=== PATIENT | female | born 1965 | race Caucasian/White ===

== ENCOUNTER 2016-08-24 19:31 | Emergency (ER) | payer OTHER ==
[~2016-08-24] VITALS: Ht 157.5 cm; Wt 89.8 kg
[~2016-08-24 19:31] MED LIST: ATEN50TA8 PO
[2016-08-24 19:46] VITALS: TEMP 36.9; Ht 157.5 cm; Wt 89.8 kg
[2016-08-24] MEDS ORDERED: PARO1TAB27 PO (20:00)
[2016-08-24] MEDS ORDERED: PROPARACAINE HCL 0.5% OP SOLN 15 ML BTL OP STA (20:06)
[2016-08-24] MEDS ORDERED: ERYTHROMYCIN OP OINT 5 MG/GM 3.5 GM TUBE OP ONE (20:45)
[2016-08-24] MEDS ORDERED: ERYOPO1 OPR (20:48)
--- NOTE | 2016-08-24 20:49 | EMERGENCY ROOM VISIT NOTE ---
History First contact with patient: 19:50 Chief Complaint: EYE ASSESSMENT Stated Complaint: WORK COMP,BURNING,BLURRY VISION R EYE,BLEACH History of Present Illness The patient is a 50 year old female who presents to the Emergency Department by private vehicle for evaluation of persistent burning to the RIGHT eye. She reports that approximately 4 PM while at work, she was filling a bucket with water and cleaning solution when she was last in the eye with the cleaning solution. 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 She is uncertain of the ingredients. She continued to work but had persistent pain despite taking out her contact lens immediately. She flushed the eyes immediately. She was seen at a walk-in clinic. She had an eye exam performed and was directed to the emergency department for concern for possible corneal burn. The patient complains of persistent burning and pain to the Frances her discomfort a 6/10. She denies any fevers, chills, double vision, headaches, this is correlated numbness, nausea, or vomiting. Her tetanus status is up-to-date. Review of Systems A complete 10-point Review of Systems was discussed with the patient, with pertinent positives and negatives listed in the History of Present Illness. All remaining Review of Systems questions can be considered negative unless otherwise specified. Social History Smoking Status: Never Smoker Smokeless Tobacco Use: No Drug Use: none Marital Status: Housing Status: lives with family Occupation Status: employed Current/Historical Medications Scheduled Atenolol (Tenormin), 50 MG PO DAILY Erythromycin (Erythromycin), 1 CM OPR QID Paroxetine (Paxil), 20 MG PO DAILY Allergies Coded Allergies: Sulfa Drugs (Unverified Allergy, Severe, 08/06/09) Physical Exam Vital Signs Date Time Temp Pulse Resp B/P Pulse Ox O2 Delivery O2 Flow Rate FiO2 08/24/16 21:35 66 133/79 97 08/24/16 19:46 36.9 75 18 139/83 96 Room Air Right Eye Acuity: 20/200 Left Eye Acuity: 20/40 Pain Rating (0-10): 6 Physical Exam VITAL SIGNS - Vital signs and nursing notes were reviewed. GENERAL - 50-year-old female appearing her stated age. Communicates well with provider and answers questions appropriately. HEAD - Normocephalic, Atraumatic. No Adames's Sign or Raccoon's Eyes. No depressed skull fractures palpable. EYES - PERRL with EOMI bilaterally. Sclera without noticeable foreign body or excoriations. Mild injection noted in the RIGHT eye. Without subconjunctival hemorrhage. Palpebral conjunctiva pink and moist with no injection or discharge noted. Slit lamp examination performed as further described. EARS - No deformities of external structures noted on gross examination bilaterally. Handle of malleus, umbo, cone of light, pars tensa/flaccid all easily visualized. NOSE - Midline and without cyanosis. Without discharge. MOUTH/OROPHARYNX - Without perioral cyanosis. Tongue midline with equal elevation of palate bilaterally. No tonsillar hypertrophy, erythema, or exudates noted. Good dentition noted. NECK - FROM assessed. No cervical lymphadenopathy noted. Medical Decision & Procedures Medications Administered Medications (Trade) Dose Ordered Sig/Valerie Route Start Time Stop Time Status Last Admin Dose Admin Proparacaine HCl (Alcaine 0.5% Oph Soln) 2 drops NOW STAT OP 08/24/16 20:06 08/24/16 20:07 DC 08/24/16 20:18 2 DROPS Erythromycin (Erythromycin Oph Oint) 1 appln NOW ONCE OP 08/24/16 20:45 08/24/16 20:46 DC 08/24/16 21:32 1 APPLN Procedure Slit Lamp Examination was performed of the RIGHT eye(s). Alcaine drops were applied to the affected eye(s) for proper anesthetization. The affected eye(s) were stained with Fluorescein stain to precipitate adequate visualization of any conjunctival/scleral excoriations or ulcers. The patient's face was comfortably rested on the chin guard of the slit lamp apparatus. The lights were dimmed and the affected eye(s) were thoroughly examined under microscopy using the blue light. No uptake was present throughout. Additionally, the eye(s ) were examined under microscopy using the regular light. Close examination revealed no foreign material. No hyphema or hypopyon. Patient tolerated the procedure well and no complications were met. ED Course Patient was seen and evaluated by myself. Slit-lamp exam was performed. PH was found to be 7.0 bilaterally. It did discuss the case with poison control. They agree with assessment and conservative management as the patient is oriented and evaluated and flushed the eyes for comfort. The patient's exam is otherwise unremarkable. She was provided erythromycin ophthalmic, but for antibiotic coverage and soothing comfort. The patient will follow-up with Workmen's Compensation approved supervisor unloading from today's visit. She will return for any changing or worsening symptoms. Patient discharged home in good condition. Medical Decision Given the patient's presentation and stated complaints, I did elect to perform the above-mentioned workup. The patient presents with persistent pain and burning to the RIGHT eye. She chemical exposure to the area. Her exam is otherwise unremarkable. The patient is likely expansive persistent irritation secondary to the exposure. She'll follow-up with her workman's compensation approved supervisor unloading from today's visit. She will return for any changing or worsening symptoms. Patient discharged home in good condition. In the evaluation and treatment of this patient, the following differential diagnoses were considered: Corneal Abrasion, Conjunctivitis, Eye Contusion, Globe Injury, Orbital Floor Injury (Blowout Fracture), Corneal Ulcer, Keratitis , Herpes Zoster Ophthalmic, Blepharitis, Orbital Cellulitis, Iritis, Scleritis/ Episcleritis, Uveitis, Temporal Arteritis, Subconjunctival Hemorrhage. Impression Primary Impression: Chemical exposure of eye Departure Information Dispostion Home / Self-Care Condition GOOD Prescriptions Erythromycin (Erythromycin) 1 Appln/1 Gm Oint 1 CM OPR QID for 7 Days, #1 TUBE 0 Refills Prov: Layo Mack, SAL 08/24/16 Referrals Cash Rogers M.D. (PCP) Maverick Ernst M.D. Patient Instructions My [facility] Additional Instructions You have been treated in the Emergency Department for chemical exposure/ irritation to the RIGHT eye. Use the erythromycin ophthalmic ointment as prescribed. For pain control, you can use the following [id number] medicines (if >12 yo): - Regular strength (325mg/tab) Tylenol (acetaminophen) 2 tabs every 4-6 hours as needed. Do not exceed 12 tablets in a 24 hour period. Avoid taking more than 4 grams (4000 mg) of Tylenol per day. This includes any other sources of acetaminophen you may take on a regular basis. - Regular strength (200 mg/tab) Advil (ibuprofen) 1-2 tabs every 4-6 hours as needed. Do not exceed a dose of 3200 mg per day. Avoid rubbing your eyes for the next few days as this can cause irritation. Wear sunglasses when outside to help minimize your pain. You should relax in a quiet, dark room to help minimize your symptoms. You should seek evaluation of your corneal irritation by an supervisor unloading following your visit to the Emergency Department. The Emergency Department is not capable of treating optic issues long-term. You should call your supervisor unloading as soon as possible to make an appointment for evaluation of your follow-up care. Return to the emergency department if you develop the following symptoms despite treatment course outlined above: blurry vision, loss of vision, fever, intractable pain, increased redness, swelling, or purulent discharge.
[2016-08-24 21:35] VITALS: BP 133/79; PULSE 66; O2SAT 97
== END 2016-08-24 21:36 | disposition home or self-care (01) ==
LOC: C.EDB 19:32 → C.EDD 21:36
DX: T65.91XA Toxic effect of unspecified substance, accidental (unintentional), initial encounter (principal); H57.11 Ocular pain, right eye; H53.8 Other visual disturbances; X58.XXXA Exposure to other specified factors, initial encounter; Y99.0 Civilian activity done for income or pay

== ENCOUNTER 2024-08-06 14:41 | Inpatient (IN) ==
--- NOTE | 2024-08-06 15:17 | ED Triage Note ---
Date of Service August 06, 2024 Provider in Triage Author: Angel Paulson History of Present Illness This patient was briefly evaluated while in triage. An abbreviated physical exam was performed. 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 Nontender to palpation. Initial orders for labs and / or imaging were placed and patient was placed in the waiting area until a bed is available. Please see further documentation for the full ED course.
[2024-08-06 16:34] LABS: Basophils # (auto) 0.04 K/uL (0.00-0.20); Basophils % (auto) 0.4 %; Eosinophils # (auto) 0.14 K/uL (0.00-0.50); Eosinophils % (auto) 1.4 %; Hematocrit (blood only) 41.5 % (37.0-47.0); Hemoglobin 14.2 g/dl (12.0-16.0); Immature Granulocytes # (auto) 0.03 K/uL (0.01-0.20); Immature Granulocytes % (auto) 0.3 %; Lymphocytes # (auto) 1.38 K/uL (1.20-3.40); Lymphocytes % (auto) 13.6 %; Mean Corpuscular Hemoglobin 31.7 pg (25.0-34.0); Mean Corpuscular Hgb Conc 34.2 g/dL (32.0-36.0); Mean Corpuscular Volume 92.6 fL (80.0-100.0); Mean Platelet Volume 10.4 fL (9.4-12.4); Monocytes # (auto) 0.47 K/uL (0.11-0.59); Monocytes % (auto) 4.6 %; Neutrophils # (auto) 8.11 K/uL (1.40-6.50); Neutrophils % (auto) 79.7 %; Platelet Count 416 K/uL (130-400); RDW Coefficient of Variation 13.3 % (11.5-14.5); RDW Standard Deviation 45.8 fL (36.4-46.3); Red Blood Count 4.48 M/uL (4.20-5.40); White Blood Count 10.17 K/ul (4.8-10.8)
[2024-08-06 16:53] LABS: Albumin Globulin Ratio 1.5 (0.9-2); Albumin Level 4.9 gm/dl (3.4-5.0); BUN Creatinine Ratio 22.8 (10-20); Bilirubin,Total 0.9 mg/dl (0.2-1.0); Calcium 12.7 mg/dl (8.6-10.3); Creatinine Clr Calc Pharmacy 56.6 ml/min; Globulin 3.3 gm/dl (2.5-4.0); Potassium 4.2 mmol/L (3.5-5.1); Total Protein 8.2 gm/dl (6.0-8.3)
[2024-08-06] MEDS: SODIUM CHLORIDE 0.9% 1,000 ML IV ONE (17:01)
[2024-08-06] MEDS: KETOROLAC TROMETHAMINE 15 MG/ML VIAL IV STA (17:03)
[2024-08-06] MEDS: MoRPHine SULFATE 4 MG/ML 1 ML CARP\\VIAL IV STA (17:05)
[2024-08-06] MEDS: ACETAMINOPHEN 500 MG TAB PO STA (17:05)
[2024-08-06 17:12] LABS: Partial Thromboplastin Ratio 0.9; Partial Thromboplastin Time 25 Seconds (21-31); Prothrombin Time 10.8 Seconds (9.0-12.0)
[2024-08-06] MEDS: OPTIRAY 320 125ml IV ONE (17:15)
--- NOTE | 2024-08-06 17:40 | Emergency Department Note ---
Impression & Plan Thoracic spine tumor, Hypercalcemia, Lumbar spine tumor, Multiple myeloma ED Provider Note NAME: NAILA QUIJANO AGE: 58 SEX: F : 1965 ARRIVES VIA: Walk-In INFORMANT: Patient, family members ED PROVIDER(S): Maurice Jay MD CHIEF COMPLAINT: Back pain MEDICAL DECISION MAKING: Patient presents due to concern for back pain. IV was established and blood work was obtained. The patient did have CT lumbar and thoracic spine ordered. Initial triage orders were placed prior to evaluation to include CT angiography of the chest. The patient was ordered IV morphine and IV Toradol as well as IV fluids.Blood work today shows a normal white count H&H with thrombocytosis of 416 which is new compared to prior although see not significantly elevated. Kidney function is unremarkable prerenal azotemia noted patient's calcium is 12.7 which is new compared to prior. AST ALT and alk phos are elevated from before. At 58 97 112 respectively. The patient's CTs do show concern for soft tissue mass centered within the T8 vertebral body with extension spinal canal near-total obstruction of the vertebral body. Lumbar spine CT shows L4 and L5 soft tissue masses progression and L5 soft tissue mass extends into the spinal canal with near-total destruction of the vertebral body of the posterior wall. CT angiography of the chest is negative. Patient was given additional IV pain medication. I did speak with [facility] Gautam orthopedic spine Dr. Mosley. He did recommend that the patient would benefit from an MRI but does not sound like she requires emergent surgery. He did suggest medical admission further discussion and management. He did state that for 48 hours could consider q. 20 mg every 8 hours of dexamethasone x 3 and then 10 mg Q 8 hours x 3. This will be given IV piggyback. I did speak with Dr. Javier Bush system triage officer who kindly accepted the patient pending a bed. I subsequently did speak with Dr. King and Dr. Faith. They felt the patient could stay in the ED given pending transfer status. I did convey it would be 24 hours per [facility] before a bed would be available. Discussion w/ other healthcare providers: Dr. Mosley orthopedic spine [facility] system [facility] Dr[facility] King inpatient medicine service Prior /Outside records reviewed: None Differential diagnosis: Musculoskeletal, disc herniation, fracture, sprain, strain, cord compression, discitis, sciatica, cauda equina, infection, renal colic, as well as other pathologies were considered. Diagnostics, as interpreted by me: ECG: None Cardiac monitoring: An order was placed for continuous cardiac monitoring. The monitor shows a rate of 95 with sinus rhythm. Patient was placed on pulse oximetry Medical decision rules: None Imaging studies: I informally interpreted the patient's CT thoracic spine does show deterioration of T8 with formal report to follow. HPI: Patient presents due to concern for worsening back pain. The patient feels as though her pain is in her T8 area. The patient states that she knows this because she does have a prior history of a lesion there and a known history of multiple myeloma. The patient is following with Dr. Vasques with hematology oncology but is yet to initiate any specific treatment other than pain management. Patient denies any bowel or bladder incontinence or retention. The patient does report that she slipped falling to her buttocks and may have missed stepped yesterday but had no pain until this morning. Patient denies any head or neck pain. No numbness tingling or focal weakness. Patient does not take any blood thinners. The patient did take oxycodone and 2 ibuprofen today which did improve her symptoms. Patient was to have a PET scan completed today but then presented here for evaluation and treatment given her pain. Patient denies any bowel or bladder incontinence or retention no saddle anesthesia. Patient denies any weakness in the extremities. PAST MEDICAL HISTORY: See Below PAST SURGICAL HISTORY: See Below SOCIAL HISTORY: See Below HOME MEDICATIONS: See Below ALLERGIES: See Below VITALS: See Below PHYSICAL EXAMINATION: GENERAL: NAD, non-toxic. EYE EXAM: Normal conjunctiva. PERRL, no anisocoria and EOM's grossly intact w/o pain. OROPHARYNX: Moist mucus membranes, grossly normal dentition. NECK: Trachea midline, no stridor. Supple, no nuchal rigidity, no adenopathy, non-tender. No signs of meningismus. FROM of the neck with good chin to chest and neck extension. LUNGS: Clear to auscultation. Normal chest wall mechanics. HEART: NSR, no MRG. ABDOMEN: Abdomen soft, non-tender, no masses, no rebound or guarding. BACK: No CVA TTP. Midline lower thoracic TTP no significant lumbar pain. SKIN: No rashes and no bruising. UPPER EXTREMITIES: Upper extremities are grossly normal. LOWER EXTREMITIES: Grossly normal, no edema. NEURO EXAM: A&O x3, cranial nerves II-XII grossly intact, normal speech, moves all 4 extremities. No saddle anesthesia and does move all 4 extremities. No sensory deficits. Past Med/Surg History Problem List (Updated 08/06/24 @ 22:41 by Maurice Jay MD) Multiple myeloma (Acute) Lumbar spine tumor (Acute) Hypercalcemia (Acute) Thoracic spine tumor (Acute) Abnormal CT scan, lumbar spine Hypovitaminosis D Hypertension (Chronic) URI (upper respiratory infection) (Acute) Strain of neck muscle Leg pain, left Hamstring tendinitis of left thigh Medical History Impaired fasting glucose Family history of factor V Leiden mutation Anxiety Chronic pain syndrome Depression Fatigue Surgical History History of cholecystectomy (~1989) Family History Father Liver cancer Brother Tobacco abuse Mother Spinal stenosis Uncle Colorectal cancer Denies family history of Ovarian cancer Prostate cancer Breast cancer Social History Smoking Status: Never smoker Second Hand Exposure: No; Do You Dip or Chew Tobacco: No; Hx Alcohol Use: Yes (occasional) Hx Substance Use: No Preferred Language: Faroese Pillow Agent Required: No marital status: current occupational status: employed Feels Safe at Home: Yes caffeine: Yes (1 cup of coffee in am) Dental Care, Regularly: No Seatbelt Use: always Allergies Allergies Allergy/AdvReac Type Severity Reaction Status Date / Time Sulfa (Sulfonamide Allergy Severe Hives Verified 08/06/24 17:40 Antibiotics) tuberculin, purified protein Allergy Severe Itching Verified 08/06/24 17:43 deriva Home Meds Home Medications Medication Instructions Recorded Confirmed acetaminophen 500 mg tablet 1,000 mg PO Q6H PRN Pain 01/05/22 08/06/24 (Tylenol Extra Strength) melatonin 5 mg capsule 5 mg PO HS PRN Sleep 05/19/22 08/06/24 ibuprofen 200 mg tablet (Advil) 400 - 600 mg PO Q6H PRN Pain 05/28/24 08/06/24 sertraline 50 mg tablet 50 mg PO HS 08/06/24 08/06/24 Previous Rx's Medication Instructions Recorded amlodipine 5 mg tablet 5 mg PO QPM #90 tabs 07/01/24 cyclobenzaprine 10 mg tablet 10 mg PO Q12H PRN muscle spasm 30 07/29/24 days #60 tabs oxycodone 5 mg tablet See Rx Instructions PO Q6H PRN 07/29/24 pain 3 days #24 tabs Results & Data (ED) Vital Signs Vital Signs - 24 hr 08/06/24 15:15 08/06/24 16:44 08/06/24 16:49 Temperature 36.6 C Temperature Source Temporal Artery Scan Pulse Rate 128 H 104 H Pulse Rate [Apical] 104 H Pulse Rhythm [Apical] Regular Pulse Strength [Apical] Normal Respiratory Rate 22 18 Respiratory Effort / Characteristics Non-Labored Spontaneous Non-Labored Spontaneous Respiratory Depth Normal Normal Respiratory Pattern Regular Blood Pressure 182/108 H Blood Pressure [Right Arm] 194/111 H Blood Pressure Mean 132 Blood Pressure Mean [Right Arm] 138 Blood Pressure Position Sitting Blood Pressure Position [Right Arm] Lying Pulse Oximetry 92 99 Oxygen Delivery Method Room Air Room Air Oxygen Flow Rate Sepsis Recent Fever Within 48 Hours No Sepsis New/Unexplained Change in Mental Status No Sepsis Action Taken by Nursing Physician Notified 08/06/24 18:04 08/06/24 20:25 08/06/24 20:33 Temperature Temperature Source Pulse Rate 96 H Pulse Rate [Apical] 99 H 95 H Pulse Rhythm [Apical] Pulse Strength [Apical] Respiratory Rate 22 16 Respiratory Effort / Characteristics Non-Labored Spontaneous Non-Labored Spontaneous Respiratory Depth Normal Normal Respiratory Pattern Regular Regular Blood Pressure Blood Pressure [Right Arm] 174/109 H 207/116 H Blood Pressure Mean Blood Pressure Mean [Right Arm] 130 146 Blood Pressure Position Blood Pressure Position [Right Arm] Lying Pulse Oximetry 94 98 Oxygen Delivery Method Room Air Nasal Cannula Oxygen Flow Rate 2 Sepsis Recent Fever Within 48 Hours Sepsis New/Unexplained Change in Mental Status Sepsis Action Taken by [facility] Medications Current Medication List: was personally reviewed by me Laboratory Data Attestation: I reviewed the patient's lab results. 08/06/24 16:00 08/06/24 16:00 Lab Results 08/06/24 08/06/24 Range/Units 16:00 21:46 WBC 10.17 (4.8-10.8) K/ul RBC 4.48 (4.20-5.40) M/uL Hgb 14.2 (12.0-16.0) g/dl Hct 41.5 (37.0-47.0) % MCV 92.6 (80.0-100.0) fL MCH 31.7 (25.0-34.0) pg MCHC 34.2 (32.0-36.0) g/dL RDW Std Deviation 45.8 (36.4-46.3) fL RDW Coeff of [place] 13.3 (11.5-14.5) % Plt Count 416 H (130-400) K/uL MPV 10.4 (9.4-12.4) fL Immature Gran % (Auto) 0.3 % Neut % (Auto) 79.7 % Lymph % (Auto) 13.6 % Harvey % (Auto) 4.6 % Eos % (Auto) 1.4 % Baso % (Auto) 0.4 % Neut # (Auto) 8.11 H (1.40-6.50) K/uL Lymph # (Auto) 1.38 (1.20-3.40) K/uL Harvey # (Auto) 0.47 (0.11-0.59) K/uL Eos # (Auto) 0.14 (0.00-0.50) K/uL Baso # (Auto) 0.04 (0.00-0.20) K/uL Immature Gran # (Auto) 0.03 (0.01-0.20) K/uL PT 10.8 (9.0-12.0) Seconds INR 1.0 (0.9-1.1) APTT 25 (21-31) Seconds PTT Ratio 0.9 Sodium 136 (136-145) mmol/L Potassium 4.2 (3.5-5.1) mmol/L Chloride 97 L (98-107) mmol/L Carbon Dioxide 28 (21-32) mmol/L Anion Gap 11 (3-11) BUN 26 H (6-23) mg/dl Creatinine 1.14 (0.6-1.2) mg/dl Est Cr Clr Drug Dosing 56.6 ml/min eGFR 55.11 BUN/Creatinine Ratio 22.8 H (10-20) Glucose 165 H (70-99(Fasting)) mg/dl Calcium 12.7 H* (8.6-10.3) mg/dl Ionized Calcium 1.36 H (1.12-1.32) mmol/L Magnesium 2.0 (1.7-2.4) mg/dl Total Bilirubin 0.9 (0.2-1.0) mg/dl AST 58 H (13-39) U/L ALT 97 H (7-52) U/L Alkaline Phosphatase 112 H (34-104) U/L Total Protein 8.2 (6.0-8.3) gm/dl Albumin 4.9 (3.4-5.0) gm/dl Globulin 3.3 (2.5-4.0) gm/dl Albumin/Globulin Ratio 1.5 (0.9-2) Administered Medications Amlodipine Besylate (Amlodipine Besylate 5 Mg Tab) 5 mg PO QPM NICOLASA Stop: 09/05/24 20:59 Last Admin: 08/06/24 21:57 Dose: 5 mg Documented By: ELIU Sodium Chloride (Nss) 1,000 mls @ 125 mls/hr IV .Q8H NICOLASA Stop: 08/07/24 21:14 Last Admin: 08/06/24 22:02 Dose: 125 mls/hr Documented By: ELIU Morphine Sulfate (Morphine Sulfate 4 Mg/Ml 1 Ml Carp\Vial) 4 mg IV Q2H PRN PRN Reason: Pain Stop: 08/20/24 19:40 Last Admin: 08/06/24 20:12 Dose: 4 mg Documented By: ELIU Sertraline HCl (Sertraline Hcl 50 Mg Tablet) 50 mg PO HS NICOLASA Stop: 09/05/24 20:59 Last Admin: 08/06/24 21:57 Dose: 50 mg Documented By: ELIU Discontinued Medications Acetaminophen (Acetaminophen 500 Mg Tab) 1,000 mg PO NOW STA Stop: 08/06/24 16:56 Last Admin: 08/06/24 17:05 Dose: 1,000 mg Documented By: ELIU Al Hydrox/Mg Hydrox/Simethicone (Aluminum/Magnesium Susp 30 Ml Udc) 30 ml PO NOW STA Stop: 08/06/24 19:52 Last Admin: 08/06/24 20:11 Dose: 30 ml Documented By: ELIU Cyclobenzaprine HCl (Cyclobenzaprine Hcl 10 Mg Tab) 10 mg PO NOW STA Stop: 08/06/24 20:57 Last Admin: 08/06/24 21:07 Dose: 10 mg Documented By: ELIU Fentanyl Citrate (Fentanyl Citrate Pf 100 Mcg/2 Ml Vial) 75 mcg IV NOW STA Stop: 08/06/24 18:09 Last Admin: 08/06/24 18:11 Dose: 75 mcg Documented By: ELIU Sodium Chloride (Nss) 1,000 mls @ 999 mls/hr IV .Q1H1M ONE Stop: 08/06/24 17:55 Last Admin: 08/06/24 17:01 Dose: 999 mls/hr Documented By: ELIU Sodium Chloride (Nss) 500 mls @ 999 mls/hr IV .Q31M ONE Stop: 08/06/24 20:11 Last Admin: 08/06/24 19:45 Dose: 999 mls/hr Documented By: ELIU Zoledronic Acid 3.5 mg/ Sodium (Chloride) 104.375 mls @ 410 mls/hr IV ONE STA; Protocol Stop: 08/06/24 21:26 Last Admin: 08/06/24 21:58 Dose: 410 mls/hr Documented By: ELIU Ioversol (Optiray 320 125ml) 115 ml IV ONCE ONE Stop: 08/06/24 17:16 Last Admin: 08/06/24 17:15 Dose: 115 ml Documented By: MARLENE Ketorolac Tromethamine (Ketorolac Tromethamine 15 Mg/Ml Vial) 10 mg IV ONE STA Stop: 08/06/24 16:56 Last Admin: 08/06/24 17:03 Dose: 10 mg Documented By: ELIU Morphine Sulfate (Morphine Sulfate 4 Mg/Ml 1 Ml Carp\Vial) 4 mg IV NOW STA Stop: 08/06/24 16:56 Last Admin: 08/06/24 17:05 Dose: 4 mg Documented By: ELIU Ondansetron HCl (Ondansetron Inj 2 Mg/Ml 2 Ml Vial) 4 mg IV NOW STA Stop: 08/06/24 19:52 Last Admin: 08/06/24 20:11 Dose: 4 mg Documented By: ELIU Imaging Data Radiologist's Impression: Lumbar Spine CT 08/06/24 15:18 EXAMINATION: CT lumbar spine W/O con CLINICAL HISTORY: Multiple myeloma, masses within the spine, pain PRIORS: 06/15/[address] TECHNIQUE: Contiguous axial images were obtained through the lumbar spine without the use of intravenous contrast. Sagittal and coronal reformations are supplied. FINDINGS: Soft tissue masses are centered within the L4 and L5 vertebral bodies. Within the L4 vertebral body, this is predominantly within the anterior vertebral body with moderate erosion/destruction of the vertebral body. The posterior cortex is intact. No high-grade compression fracture. The L5 vertebral body the soft tissue mass is present within the vertebral body and extending posteriorly. Total destruction of the posterior cortex and inferior and superior endplates is noted, progressed when compared to 06/15/2024. The soft tissue mass extends into the spinal canal. Moderate to high-grade facet hypertrophic changes present at these levels. No soft tissue mass or destruction involving the L1-L3 levels. The sacrum is unremarkable. Moderate atherosclerotic disease of the abdominal aorta in the [id number]. No free fluid in the visualized abdomen or pelvis. No retroperitoneal adenopathy. IMPRESSION: 1. Soft tissue masses are present and expanding within the L4 and L5 vertebral bodies, progressed since the prior examination. At the L5 level, that soft tissue mass extends into the spinal canal with near-total destruction of the vertebral body and posterior wall. ACT 112: Positive. There are findings on this examination that require communication between the performing entity and the patient following Patient Test Result Information Act ([place] ACT 112) guidelines. Electronically signed by Mary Donnelly 08-06-2024 5:[address] 08/06/24 15:18 EXAMINATION: CT thoracic spine with contrast CLINICAL HISTORY: Multiple myeloma, masses within the spine, pain PRIORS: 06/15/[address] TECHNIQUE: Contiguous axial images were obtained through the thoracic spine without the use of intravenous contrast. Sagittal and coronal reformations are supplied. FINDINGS: A soft tissue mass is present within the T8 vertebral body with extension into the thecal sac with near-total complete destruction of the T8 vertebral body, progressed in the interval, image 50, series 901. Mild diffuse osseous demineralization noted with moderate degenerative change of the thoracic spine. Mild kyphosis is present. Multilevel anterior bridging osteophytes present. Paraspinal muscle bulk within normal limits. No pleural effusion. IMPRESSION: 1. Soft tissue mass centered within the T8 vertebral body with extension into the spinal canal and near-total destruction of the vertebral body, progressed. ACT 112: Positive. There are findings on this examination that require communication between the performing entity and the patient following Patient Test Result Information Act ([place] ACT 112) guidelines. Electronically signed by Mary Donnelly 08-06-2024 5:57 PM Chest CTA 08/06/24 15:19 EXAMINATION: CT angio chest PE protocol CLINICAL HISTORY: Bone cancer, tumors and spine, worsening spine pain, multiple myeloma, PRIORS: Chest CT 06/15/2024 TECHNIQUE: Contiguous axial images were obtained through the chest with the use of intravenous contrast. Sagittal and coronal reformations are supplied. FINDINGS: The pulmonary arteries are normal in size and well opacified no central or peripheral pulmonary embolism. No pneumonia or pneumothorax. No dominant mass in the chest. No pleural or pericardial effusion. Trachea and mainstem bronchi patent. In bone windows, advanced lucency present within the eighth thoracic vertebral body with large soft tissue mass present, image 99, series 8, extending into the spinal canal on the current examination. IMPRESSION: 1. No central or peripheral pulmonary embolism. 2. Soft tissue mass with destruction of the T8 vertebral body, extending into the spinal canal.. ACT 112: Positive. There are findings on this examination that require communication between the performing entity and the patient following Patient Test Result Information Act ([place] ACT 112) guidelines. Electronically signed by Mary Donnelly 08-06-2024 5:57 PM Discharge Plan Visit Data Chief Complaint: Back Injury/Pain Stated Complaint: SPINAL CANCER, BACK/LUMBAR PAIN, SOB ED Provider: Maurice Jay Discharge Problem: Thoracic spine tumor, Hypercalcemia, Lumbar spine tumor, Multiple myeloma Forms Stand Alone Forms: [facility] Prescriptions Prescriptions: No Action amlodipine 5 mg tablet 5 mg PO QPM Qty: 90 3RF cyclobenzaprine 10 mg tablet 10 mg PO Q12H PRN (Reason: muscle spasm) 30 Days Qty: 60 1RF Rx Instructions: do not take with oxy oxycodone 5 mg tablet See Rx Instructions PO Q6H MDD max dose is 6 tabs / per day PRN (Reason: pain) 3 Days Qty: 24 0RF Rx Instructions: 1-2 orally every 6 hours PRN; melatonin 5 mg capsule 5 mg PO HS PRN (Reason: Sleep) acetaminophen [Tylenol Extra Strength] 500 mg tablet 1,000 mg PO Q6H PRN (Reason: Pain) ibuprofen [Advil] 200 mg Tablet 400 - 600 mg PO Q6H PRN (Reason: Pain) sertraline 50 mg tablet 50 mg PO HS Referrals Referrals: Talha Hernandez DO [Primary Care Provider] - Discharge Problem: Multiple myeloma Qualifiers: Multiple myeloma remission status: not in remission Qualified Code(s): C90.00 - Multiple myeloma not having achieved remission
--- NOTE | 2024-08-06 18:02 | CT Scan Report ---
EXAMINATION: CT angio chest PE protocol CLINICAL HISTORY: Bone cancer, tumors and spine, worsening spine pain, multiple myeloma, PRIORS: Chest CT 06/15/2024 TECHNIQUE: Contiguous axial images were obtained through the chest with the use of intravenous contrast. Sagittal and coronal reformations are supplied. FINDINGS: The pulmonary arteries are normal in size and well opacified no central or peripheral pulmonary embolism. No pneumonia or pneumothorax. No dominant mass in the chest. No pleural or pericardial effusion. Trachea and mainstem bronchi patent. In bone windows, advanced lucency present within the eighth thoracic vertebral body with large soft tissue mass present, image 99, series 8, extending into the spinal canal on the current examination. IMPRESSION: 1. No central or peripheral pulmonary embolism. 2. Soft tissue mass with destruction of the T8 vertebral body, extending into the spinal canal.. ACT 112: Positive. There are findings on this examination that require communication between the performing entity and the patient following Patient Test Result Information Act ([place] ACT 112) guidelines. Electronically signed by Mary Donnelly 08-06-2024 5:57 PM
--- NOTE | 2024-08-06 18:02 | CT Scan Report ---
EXAMINATION: CT thoracic spine with contrast CLINICAL HISTORY: Multiple myeloma, masses within the spine, pain PRIORS: 06/15/[address] TECHNIQUE: Contiguous axial images were obtained through the thoracic spine without the use of intravenous contrast. Sagittal and coronal reformations are supplied. FINDINGS: A soft tissue mass is present within the T8 vertebral body with extension into the thecal sac with near-total complete destruction of the T8 vertebral body, progressed in the interval, image 50, series 901. Mild diffuse osseous demineralization noted with moderate degenerative change of the thoracic spine. Mild kyphosis is present. Multilevel anterior bridging osteophytes present. Paraspinal muscle bulk within normal limits. No pleural effusion. IMPRESSION: 1. Soft tissue mass centered within the T8 vertebral body with extension into the spinal canal and near-total destruction of the vertebral body, progressed. ACT 112: Positive. There are findings on this examination that require communication between the performing entity and the patient following Patient Test Result Information Act ([place] ACT 112) guidelines. Electronically signed by Mary Donnelly 08-06-2024 5:57 PM
--- NOTE | 2024-08-06 18:02 | CT Scan Report ---
EXAMINATION: CT lumbar spine W/O con CLINICAL HISTORY: Multiple myeloma, masses within the spine, pain PRIORS: 06/15/[address] TECHNIQUE: Contiguous axial images were obtained through the lumbar spine without the use of intravenous contrast. Sagittal and coronal reformations are supplied. FINDINGS: Soft tissue masses are centered within the L4 and L5 vertebral bodies. Within the L4 vertebral body, this is predominantly within the anterior vertebral body with moderate erosion/destruction of the vertebral body. The posterior cortex is intact. No high-grade compression fracture. The L5 vertebral body the soft tissue mass is present within the vertebral body and extending posteriorly. Total destruction of the posterior cortex and inferior and superior endplates is noted, progressed when compared to 06/15/2024. The soft tissue mass extends into the spinal canal. Moderate to high-grade facet hypertrophic changes present at these levels. No soft tissue mass or destruction involving the L1-L3 levels. The sacrum is unremarkable. Moderate atherosclerotic disease of the abdominal aorta in the [id number]. No free fluid in the visualized abdomen or pelvis. No retroperitoneal adenopathy. IMPRESSION: 1. Soft tissue masses are present and expanding within the L4 and L5 vertebral bodies, progressed since the prior examination. At the L5 level, that soft tissue mass extends into the spinal canal with near-total destruction of the vertebral body and posterior wall. ACT 112: Positive. There are findings on this examination that require communication between the performing entity and the patient following Patient Test Result Information Act ([place] ACT 112) guidelines. Electronically signed by Mary Donnelly 08-06-2024 5:57 PM
[2024-08-06] MEDS: fentaNYL citrate PF 100 MCG/2 ML VIAL IV STA (18:11)
[2024-08-06] MEDS: SODIUM CHLORIDE 0.9% 500 ML IV ONE (19:45)
[2024-08-06] MEDS: ALUMINUM/MAGNESIUM SUSP 30 ML UDC PO STA (20:11)
[2024-08-06] MEDS: ONDANSETRON INJ 2 MG/ML 2 ML VIAL IV STA (20:11)
[2024-08-06] MEDS: MoRPHine SULFATE 4 MG/ML 1 ML CARP\\VIAL IV PRN (20:12)
--- NOTE | 2024-08-06 20:24 | Hospitalist Consultation ---
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 Patient is an appropriate pending transfer to [facility] [address] at this time Dexamethasone 20mg q8h for 1st day then 10mg q8h for second day if still here Avoid acetaminophen due to elevated LFTs Morphine 4mg IV q2h PRN for pain (2) Hypertension: Continue her routine medications and treat pain (3) Hypercalcemia: IV NSS Discussed with oncology Dr Vasques and will give Zolendronic acid 3.5mg IV Repeat calcium and ionized calcium levels in AM Plan VTE Prophylaxis - deferred given likely need for urgent surgery on transfer Diet - regular Disposition - will co-manage in the ER pending transfer to tertiary care facility History of Present Illness Reason for Consultation: back pain, multiple myeloma, hypercalcemia Attending Physician: Dr Jay History of Present Illness Tiff Lizama is a 58 year old female with multiple myeloma who presents to the ER with worsening back pain. She reports multiple months of lower back pain with radiation down her legs and increasing weakness whenever she walks. She has more recently had a back pain in the thoracic region. Yesterday she fell down in front of couch and pulling herself up she felt a pop in her mid thoracic region which initially did not hurt. However, this morning on waking up she felt a severity 10 out of 10 pain in her mid thoracic region with significant muscle spasming and cramping. She denies any new radiation down her legs. Current severity is 6 out of 10 after multiple pain medications given in the emergency room. She has numbness in her feet but this has been stable over the last month. No change in bowel or urine control. In the emergency room imaging showed a soft tissue mass centered within the T8 vertebral body with extension into the spinal canal and near-total obstruction of the vertebral body which has progressed. She notably was supposed to have a neurosurgical appointment within the last month however this was canceled last minute and she is yet to see neurosurgery as an outpatient. The MRI at this facility is currently under maintenance. Her scans were discussed with [facility] [address] orthopedic spine surgery and she has been accepted for transfer. Allergies Allergy/AdvReac Type Severity Reaction Status Date / Time Sulfa (Sulfonamide Allergy Severe Hives Verified 08/06/24 17:40 Antibiotics) tuberculin, purified protein Allergy Severe Itching Verified 08/06/24 17:43 deriva Home Medications Medication Instructions Recorded Confirmed Type acetaminophen 500 mg tablet 1,000 mg PO Q6H PRN Pain 01/05/22 08/06/24 History (Tylenol Extra Strength) melatonin 5 mg capsule 5 mg PO HS PRN Sleep 05/19/22 08/06/24 History ibuprofen 200 mg tablet (Advil) 400 - 600 mg PO Q6H PRN Pain 05/28/24 08/06/24 History amlodipine 5 mg tablet 5 mg PO QPM #90 tabs 07/01/24 08/06/24 Rx cyclobenzaprine 10 mg tablet 10 mg PO Q12H PRN muscle spasm 30 07/29/24 08/06/24 Rx days #60 tabs oxycodone 5 mg tablet See Rx Instructions PO Q6H PRN 07/29/24 08/06/24 Rx pain 3 days #24 tabs sertraline 50 mg tablet 50 mg PO HS 08/06/24 08/06/24 History Patient History Medical History Impaired fasting glucose Family history of factor V Leiden mutation Anxiety Chronic pain syndrome Depression Fatigue Surgical History History of cholecystectomy (~1989) Family History Father Liver cancer Brother Tobacco abuse Mother Spinal stenosis Uncle Colorectal cancer Denies family history of Ovarian cancer Prostate cancer Breast cancer Social History Smoking Status: Never smoker Second Hand Exposure: No; Do You Dip or Chew Tobacco: No; Hx Alcohol Use: Yes (occasional) Hx Substance Use: No Preferred Language: [place] [employer] Required: No marital status: current occupational status: employed Feels Safe at Home: Yes caffeine: Yes (1 cup of coffee in am) Dental Care, Regularly: No Seatbelt Use: always Review of Systems Review of Systems: All systems reviewed & are unremarkable except as noted in HPI & below Physical Exam Constitutional: WD/WN, vitals as above Respiratory: normal respiratory effort, lungs clear to auscultation Cardiovascular: Rate/Rhythm: regular rate and regular rhythm Heart Sounds: no murmur Extremities: normal capillary refill and + pedal edema (1+ b/l equal) Gastrointestinal (Abdomen): normal bowel sounds, soft, nontender, no hepatosplenomegaly Skin: no rashes, warm and dry Neurologic: + abnormal deep tendon reflexes (recuced b/l knee reflexes) ankle dorsi/plantarflexion 5/5, unable to examine hip/knee movement due to pain, sensation intact b/l but chronically reduced in distal distribution Psychiatric: A+Ox3, euthymic affect Results & Data Results & Data Vital Signs (Past 12 Hours) Vital Signs Temp Pulse Pulse Resp BP BP Pulse Ox 08/06/24 18:04 99 H 22 174/109 H 94 08/06/24 16:49 104 H 18 194/111 H 99 08/06/24 16:44 104 H 08/06/24 15:15 36.6 C 128 H 22 182/108 H 92 O2 Del Method 08/06/24 18:04 Room Air 08/06/24 16:49 Room Air 08/06/24 16:44 08/06/24 15:15 Room Air Laboratory Results Abnormal lab results 08/06/24 Range/Units 16:00 Plt Count 416 H (130-400) K/uL Neut # (Auto) 8.11 H (1.40-6.50) K/uL Chloride 97 L (98-107) mmol/L BUN 26 H (6-23) mg/dl BUN/Creatinine Ratio 22.8 H (10-20) Glucose 165 H (70-99(Fasting)) mg/dl Calcium 12.7 H* (8.6-10.3) mg/dl AST 58 H (13-39) U/L ALT 97 H (7-52) U/L Alkaline Phosphatase 112 H (34-104) U/L Diagnostic Findings CT angio chest PE protocol CLINICAL HISTORY: Bone cancer, tumors and spine, worsening spine pain, multiple myeloma, PRIORS: Chest CT 06/15/2024 TECHNIQUE: Contiguous axial images were obtained through the chest with the use of intravenous contrast. Sagittal and coronal reformations are supplied. FINDINGS: The pulmonary arteries are normal in size and well opacified no central or peripheral pulmonary embolism. No pneumonia or pneumothorax. No dominant mass in the chest. No pleural or pericardial effusion. Trachea and mainstem bronchi patent. In bone windows, advanced lucency present within the eighth thoracic vertebral body with large soft tissue mass present, image 99, series 8, extending into the spinal canal on the current examination. IMPRESSION: 1. No central or peripheral pulmonary embolism. 2. Soft tissue mass with destruction of the T8 vertebral body, extending into the spinal canal.. CT thoracic spine with contrast CLINICAL HISTORY: Multiple myeloma, masses within the spine, pain PRIORS: 06/15/[address] TECHNIQUE: Contiguous axial images were obtained through the thoracic spine without the use of intravenous contrast. Sagittal and coronal reformations are supplied. FINDINGS: A soft tissue mass is present within the T8 vertebral body with extension into the thecal sac with near-total complete destruction of the T8 vertebral body, progressed in the interval, image 50, series 901. Mild diffuse osseous demineralization noted with moderate degenerative change of the thoracic spine. Mild kyphosis is present. Multilevel anterior bridging osteophytes present. Paraspinal muscle bulk within normal limits. No pleural effusion. IMPRESSION: 1. Soft tissue mass centered within the T8 vertebral body with extension into the spinal canal and near-total destruction of the vertebral body, progressed. CT lumbar spine W/O con CLINICAL HISTORY: Multiple myeloma, masses within the spine, pain PRIORS: 06/15/[address] TECHNIQUE: Contiguous axial images were obtained through the lumbar spine without the use of intravenous contrast. Sagittal and coronal reformations are supplied. FINDINGS: Soft tissue masses are centered within the L4 and L5 vertebral bodies. Within the L4 vertebral body, this is predominantly within the anterior vertebral body with moderate erosion/destruction of the vertebral body. The posterior cortex is intact. No high-grade compression fracture. The L5 vertebral body the soft tissue mass is present within the vertebral body and extending posteriorly. Total destruction of the posterior cortex and inferior and superior endplates is noted, progressed when compared to 06/15/2024. The soft tissue mass extends into the spinal canal. Moderate to high-grade facet hypertrophic changes present at these levels. No soft tissue mass or destruction involving the L1-L3 levels. The sacrum is unremarkable. Moderate atherosclerotic disease of the abdominal aorta in the [id number]. No free fluid in the visualized abdomen or pelvis. No retroperitoneal adenopathy. IMPRESSION: 1. Soft tissue masses are present and expanding within the L4 and L5 vertebral bodies, progressed since the prior examination. At the L5 level, that soft tissue mass extends into the spinal canal with near-total destruction of the vertebral body and posterior wall. Medications Administered ER Medications Given: Morphine 4mg IV Toradol 10mg IV Acetaminophen 1000mg PO Normal saline 1000ml bolus Fentanyl 75 mcg IV Normal saline 500ml bolus Ondansetron 4mg IV Maalox 30ml PO ECG Additional Comments: Ordered pending PG Care Time/CCT Total # of Minutes Spent Total Time Spent with Patient: Total time spent is greater than 50% in coordination of care (as documented) at patient's floor/unit and/or counseling patient: Coding Level of Care Code 69661 IN/OBS CONSULT LVL 5,80M Diagnoses Thoracic spine tumor D49.2 Hypertension I10 Hypercalcemia E83.52
[2024-08-06] MEDS: CYCLOBENZAPRINE HCL 10 MG TAB PO STA (21:07)
[2024-08-06] MEDS ORDERED: DEXAMETHASONE SOD INJ 4 MG/ML VIAL IV SCH (21:30)
[2024-08-06] MEDS: SERTRALINE HCL 50 MG TABLET PO SCH (21:57)
[2024-08-06] MEDS: amLODIPine BESYLATE 5 MG TAB PO SCH (21:57)
[2024-08-06] MEDS: SODIUM CHLORIDE 0.9% IV STA (21:58)
[2024-08-06] MEDS: ZOLEDRONIC ACID IV STA (21:58)
[2024-08-06] MEDS: SODIUM CHLORIDE 0.9% 1,000 ML IV SCH (22:02)
[2024-08-06] MEDS: dexAMETHasone 20 MG in DEXTROSE 5% 25 ML IV STA (22:33)
[2024-08-07 02:38] LABS: Appearance Urine Clear (Clear); Bacteria Urine Automated None Seen (None Seen); Bilirubin Urine Negative (Negative); Blood Urine Negative (Negative); Cast Urine Automated 0-2 /lpf (0-2); Color Urine Yellow; Epithelial Cell Urine Auto 0-2 /hpf (0-2); Glucose Urine UA Negative (Negative); Ketones Urine Negative (Negative); Leukocyte Esterase Urine 1+ (Negative); Nitrite Urine Negative (Negative); Protein Urine Negative (Negative); RBC Urine Automated 0-2 /hpf (0-2); Specific Gravity Urine 1.041 (1.000-1.030); Urobilinogen Urine Negative (Negative)
[2024-08-07] MEDS: HYDROmorphone INJ 0.5 MG/0.5 ML SYR IV STA (04:10)
--- NOTE | 2024-08-07 05:42 | Emergency Department Note ---
ED Visit Note Patient was signed out to me at change of shift by Dr. Jay, patient is currently pending transfer to [facility] in [place] for further evaluation for invasive soft tissue mass of the spine. On my assessment here in the ED the patient is alert, she was hypertensive and complaining of some increased pain and therefore was given a dose of IV Dilaudid. Patient otherwise appears to be in no acute distress. Medicine team is on consult. Change of shift in the morning the patient was signed out to my colleague, Dr. Mukherjee, pending transfer to [facility] when bed is available. .
[2024-08-07 05:59] LABS: Calcium 10.4 mg/dl (8.6-10.3); Creatinine Clr Calc Pharmacy 83.9 ml/min; Potassium 4.4 mmol/L (3.5-5.1)
[2024-08-07 06:02] LABS: Hematocrit (blood only) 37.3 % (37.0-47.0); Hemoglobin 12.9 g/dl (12.0-16.0); Mean Corpuscular Hemoglobin 31.9 pg (25.0-34.0); Mean Corpuscular Hgb Conc 34.6 g/dL (32.0-36.0); Mean Corpuscular Volume 92.3 fL (80.0-100.0); Mean Platelet Volume 10.3 fL (9.4-12.4); Platelet Count 301 K/uL (130-400); RDW Coefficient of Variation 13.3 % (11.5-14.5); RDW Standard Deviation 45.4 fL (36.4-46.3); Red Blood Count 4.04 M/uL (4.20-5.40)
[2024-08-07] MEDS: dexAMETHasone 20 MG in DEXTROSE 5% 25 ML IV SCH (06:06)
[2024-08-07 06:31] LABS: Basophils # (auto) 0.02 K/uL (0.00-0.20); Basophils % (auto) 0.2 %; Immature Granulocytes # (auto) 0.05 K/uL (0.01-0.20); Immature Granulocytes % (auto) 0.5 %; Lymphocytes # (auto) 0.46 K/uL (1.20-3.40); Lymphocytes % (auto) 4.6 %; Monocytes # (auto) 0.12 K/uL (0.11-0.59); Monocytes % (auto) 1.2 %; Neutrophils # (auto) 9.25 K/uL (1.40-6.50); Neutrophils % (auto) 93.5 %; Polychromasia 1+
--- NOTE | 2024-08-07 06:50 | Emergency Department Note ---
ED Visit Note I received this patient at change of shift signout from Dr. Dodson. Please see his note for overnight care. The patient is a 58-year-old female who presented to the emergency department initially for back pain. She was found to have a mass on her lumbar spine. She was felt to be a better candidate for transfer. The patient was evaluated by the [facility] hospitalist group. She is being medically managed by the hospitalist group. Transfer paperwork has been filled out. The patient is currently awaiting bed assignment and transportation. The patient is still waiting bed assignment and transportation. The patient was signed out to Dr. Juan at change of shift. Please see his note for continuation of care and further disposition. .
--- NOTE | 2024-08-07 07:45 | Electrocardiogram Report ---
Test Reason : Blood Pressure : */* mmHG Vent. Rate : 97 BPM Atrial Rate : 97 BPM P-R Int : 140 ms QRS Dur : 76 ms QT Int : 346 ms P-R-T Axes : 50 -26 88 degrees QTcB Int : 439 ms Normal sinus rhythm Normal ECG No previous ECGs available Confirmed by José Antonio Francis ([id number]) on 08/07/2024 7:44:53 AM Referred By: REFERRED SELF Confirmed By: José Antonio Francis
--- NOTE | 2024-08-07 16:20 | Emergency Department Note ---
ED Visit Note 1500: Received signout from Dr. Mukherjee. 58-year-old female with history of multiple myeloma with a destructive lesion awaiting transfer to [facility]. 1619: In review of Dr. Jay's chart, the initial provider who saw the patient, he spoke with Dr. Mosley and he stated that the patient would benefit from an MRI but does not sound like the patient requires any emergent surgery. He did suggest medical admission further discussion and management. When Dr. Jay was evaluated the patient, there is no MRI available at this facility but MRI is now available today. Will obtain MRI of the patient's thoracic and lumbar spine. Internal medicine is on consult for the patient and I did tell Dr. Faith the [facility] hospitalist I would be ordering the MRI since MRI machine is now available. 1953: Patient became hypoxic after MRI. Patient states that she felt very confused. This is thought to be due to the Ativan that she got prior to the MRI . Patient is alert and oriented. She is following commands. Good strength and sensation bilateral lower and bilateral upper extremities. MRI of the thoracic spine showed an unchanged lesion involving the T8 vertebrae most likely due to metastatic disease and unchanged T8 compression fracture. There was stenosis at the level of T9 with mild spinal cord deformity due to retropulsion of the bone and bony expression from T8 and osseous lesion. No cord edema. The lumbar spine showed unchanged lesions of L4-L5 and unchanged L5 compression fracture. Attempted contact [facility] orthopedic spine discussed these findings. Transportation is currently scheduled for midnight 2003: Patient placed on nonrebreather which improved the patient's oxygen saturation. Discussed the case with on-call orthopedic spine at [place] Dr. Weiss. I read the MRI reports to them verbatim. He stated that there is no need for emergent decompression and no need for emergent transfer. Patient will be admitted to the hospitalist team at this facility .
[2024-08-07] MEDS ORDERED: dexAMETHasone 10 MG in DEXTROSE 5% 25 ML IV SCH (16:24)
[2024-08-07] MEDS: dexAMETHasone 10 MG in SYRINGE 0 ML IV SCH (17:06)
[2024-08-07] MEDS: LORazepam 1 MG/1 ML SYR ED Inj Use IV STA (17:06)
--- NOTE | 2024-08-07 17:11 | Hospitalist Progress Note ---
Date of Service August 07, 2024 Assessment & Plan (1) Thoracic spine tumor: Plan: 58-year-old woman admitted with acute on chronic back pain, she felt a pop in her T-spine. Recently diagnosed with myeloma, known to have thoracic and lumbar lytic lesions, she says insurance would not approve outpatient MRIs, was to undergo PET scan today that was not completed T8 complete destruction with extension into her spinal column, lumbar lesions as well Patient is pending transfer to [facility] at this time - no beds available yet Dexamethasone 20mg q8h reduced to 10 mg this evening because of uncontrolled hypertension Avoid acetaminophen due to elevated LFTs Morphine 4mg IV q2h PRN for pain - MRI machine was repaired today, hopeful to get MRI soon sinus tachycardia on media monitor, confirmed with twelve-lead EKG this evening. Notably she did have CTA chest yesterday which was negative for pulmonary embolism or any infiltrates. She does not have any infectious symptoms. it seems unlikely that she has sepsis. I think that is the hypertension and sinus tachycardia may be caused by acute urinary retentioncheck bladder scan it is over 500 - place milligan and reassess vital signs - retention could be from morphine, however could also be from spinal cord compression Discussed with bedside RN in the ED (2) Hypertension: Plan: Continue amlodipine Cuff is malfunctioning, the accurate readings seem to be around 150/100 Assess response to milligan (3) Hypercalcemia: Plan: Discussed with oncology Dr Vasques and gave Zolendronic acid 3.5mg IV on 08/06, IV saline Calcium virtually normalized today - Ca 10.4, iCa 1.25 -monitor daily for now Plan VTE Prophylaxis - deferred given possible need for urgent surgery Diet - regular Disposition - will co-manage in the ER pending transfer to tertiary care facility Subjective low back pain is better, thoracic still painful has been increasingly hypertensive and tachycardic today urinated once today (after 2L+ IV saline), but can't "feel it" no dyspnea cough or chest pain no abdominal pain or N/V/D has not had dysuria Physical Exam 2 Physical Exam: PHYSICAL EXAMINATION Last 24h vital signs reviewed, see documentation in flowsheet General: comfortable appearing, no distress, lying in bed HEENT: Normocephalic, atraumatic, pupils round and equal, sclerae anicteric, no conjunctival injection, moist mucus membranes Lungs: Normal respiratory effort. Clear to auscultation bilaterally. No RRW Heart: tachycardic Regular rate and rhythm, no murmurs. No JVD Abdomen: Soft, nontender, somewhat firm lower abdomen. Bowel sounds present. Extremities: Warm, dry, well-perfused. 1+ lower extremity edema. Neuro: Alert and oriented x 4, face symmetric, can move arms and legs Psych: Normal affect and behavior Results & Data Results & Data Vital Signs (Past 12 Hours) Vital Signs Pulse Pulse Resp BP BP Pulse Ox O2 Del Method 08/07/24 15:03 108 H 25 H 171/107 H 94 08/07/24 14:06 110 H 26 H 155/109 H 94 08/07/24 14:01 155/109 H 08/07/24 13:36 113 H 30 H 172/95 H 94 08/07/24 13:12 114 H 15 95 08/07/24 13:06 171/78 H 08/07/24 12:54 101 H 28 H 92 08/07/24 12:30 194/114 H 08/07/24 12:15 114 H 25 H 95 08/07/24 11:33 114 H 17 184/91 H 94 08/07/24 10:11 18 08/07/24 10:00 106 H 22 93 08/07/24 09:57 106 H 22 92 08/07/24 09:32 212/123 H 08/07/24 09:32 212/123 H 08/07/24 09:30 106 H 21 92 08/07/24 09:21 100 H 18 92 08/07/24 09:15 102 H 19 93 08/07/24 09:00 223/107 H 08/07/24 08:54 103 H 19 93 08/07/24 08:51 105 H 19 92 08/07/24 08:45 107 H 27 H 95 08/07/24 08:39 94 H 18 208/122 H 94 08/07/24 08:15 116 H 20 93 08/07/24 07:31 188/128 H 08/07/24 07:15 99 H 22 92 08/07/24 07:12 100 H 24 92 08/07/24 07:06 105 H 28 H 92 08/07/24 07:01 208/112 H 08/07/24 07:01 208/112 H 08/07/24 06:54 99 H 15 93 08/07/24 06:42 105 H 16 93 08/07/24 06:15 106 H 20 94 08/07/24 06:00 184/94 H 08/07/24 06:00 184/94 H 08/07/24 06:00 100 H 16 93 08/07/24 06:00 107 H 16 184/94 H 95 Nasal Cannula 08/07/24 05:51 99 H 19 92 08/07/24 05:45 98 H 25 H 92 08/07/24 05:30 149/110 H 08/07/24 05:30 149/110 H 08/07/24 05:27 100 H 20 95 08/07/24 05:12 105 H 23 85 L O2 Flow Rate 08/07/24 15:03 08/07/24 14:06 08/07/24 14:01 08/07/24 13:36 08/07/24 13:12 08/07/24 13:06 08/07/24 12:54 08/07/24 12:30 08/07/24 12:15 08/07/24 11:33 08/07/24 10:11 08/07/24 10:00 08/07/24 09:57 08/07/24 09:32 08/07/24 09:32 08/07/24 09:30 08/07/24 09:21 08/07/24 09:15 08/07/24 09:00 08/07/24 08:54 08/07/24 08:51 08/07/24 08:45 08/07/24 08:39 08/07/24 08:15 08/07/24 07:31 08/07/24 07:15 08/07/24 07:12 08/07/24 07:06 08/07/24 07:01 08/07/24 07:01 08/07/24 06:54 08/07/24 06:42 08/07/24 06:15 08/07/24 06:00 08/07/24 06:00 08/07/24 06:00 08/07/24 06:00 3 08/07/24 05:51 08/07/24 05:45 08/07/24 05:30 08/07/24 05:30 08/07/24 05:27 08/07/24 05:12 Laboratory Results 08/07/24 05:09 08/07/24 05:09 PG Care Time/CCT Total # of Minutes Spent Total Time Spent with Patient: Total time spent is greater than 50% in coordination of care (as documented) at patient's floor/unit and/or counseling patient: Coding Level of Care Code 39504 SUB INP/OBS CARE 3/50MIN Diagnoses Thoracic spine tumor D49.2 Hypertension I10 Hypercalcemia E83.52
--- NOTE | 2024-08-07 19:12 | Magnetic Resonance Report ---
Clinical history: Back pain. Fall 2 days ago Technique: Sagittal and axial T1 and T2-weighted magnetic resonance images were obtained of the thoracic spine without gadolinium contrast Comparison is made to the chest CT dated 06/13/2024 Findings: The thoracic vertebrae are in normal alignment with no listhesis seen. Again seen is a lesion throughout the T8 vertebral body and extending into the left pedicle, with low T1 and partially high T2 signal intensity. There is an unchanged T8 compression fracture with loss of up to 30% of the vertebrae height centrally. There is a mild old T2 compression fracture. There is no sign of acute ligamentous injury. There is no definite sign of infection. The spinal cord is of normal signal intensity with no focal lesion seen. There are predominantly anterior disc bulges throughout the thoracic spine. No definite disc herniation is seen at any level. There is mild spinal stenosis at the level of T8 due to posterior protrusion of bone of up to 2 mm Impression: 1. Unchanged lesion involving the T8 vertebra, most likely due to metastatic disease. 2. Unchanged T8 compression fracture. It is difficult to determine whether this is subacute or old given the abnormal signal from the osseous lesion 3. Mild old T2 compression fracture 4. Mild spinal stenosis at the level of T9 with mild spinal cord deformity due to retropulsion of bone and bony expansion from the T8 fracture and osseous lesion. No cord edema or myelomalacia is seen 5. No definite nerve root compression Electronically signed by Bernard Victoria 08-07-2024 7:12 PM
--- NOTE | 2024-08-07 19:27 | Magnetic Resonance Report ---
Clinical History: Fall 2 days ago Technique: Sagittal and axial T1 and T2-weighted magnetic resonance images were obtained of the lumbar spine without gadolinium contrast. Comparison is made to the CT of the lumbar spine dated 08/06/2024 Findings: There is unchanged grade 1 anterolisthesis at L4-5. There is an unchanged L5 compression fracture with loss of up to 50% of the vertebrae height centrally. There is abnormal signal involving nearly the entire L5 vertebral body with bony expansion posteriorly into the spinal canal of up to 6 mm. Again seen is a lesion within the anterior aspect of the L4 vertebral body. There is unchanged focal concavity of the inferior endplate of the L4 vertebral body that may be due to a Schmorl's node. There is a partially visualized lesion of low T1 signal intensity in the left lateral sacrum. There is no definite sign of infection. There is no sign of acute ligamentous injury. The conus medullaris appears normal, terminating at the level of L1. There is a partially visualized small right renal cyst At L1-L2, there is a minimal disc bulge without spinal stenosis or nerve root compression At L2-L3, there is a minimal disc bulge without spinal stenosis or nerve root compression At L3-L4, there is a mild disc bulge without spinal stenosis. There is slight encroachment upon both neural foramen. No clear nerve root compression is seen. At L4-L5, there is severe spinal stenosis due to a disc bulge, facet osteoarthritis, and the retropulsion of bone from the L5 vertebrae. There is mild right neural foramen narrowing At L5-S1, there is a mild disc bulge without spinal stenosis. There is bilateral neural foramen narrowing that may affect the exiting L5 nerve roots Impression: 1. Unchanged lesions within the L4 and L5 vertebral bodies as well as the sacrum, most likely due to metastatic disease 2. Unchanged L5 compression fracture 3. Severe spinal stenosis at L4-5 due to a disc bulge and facet osteoarthritis as well as 6 mm of retropulsion of bone from the fractured and infiltrated L5 vertebral body 4. Bilateral neural foramen narrowing at L5-S1 that may affect the exiting L5 nerve roots 5. Mild anterolisthesis at L4-5 Electronically signed by Bernard Victoria 08-07-2024 7:26 PM
--- NOTE | 2024-08-07 21:47 | History & Physical Report ---
Date of Service August 07, 2024 Assessment & Plan (1) Thoracic spine tumor: Plan: 58yo female with recently diagnosed thoracic and lumbar lytic lesions concerning for metastatic disease vs myeloma presenting after a fall at home. CT imaging as above with complete destruction of T8 with extension into her spinal column. MRI with no cord involvement. Patient was initially slated for transfer to [facility]. Unfortunately this transfer was cancelled by the ER based on MRI results and discussion with Neurosurgery at [facility]- no urgent transfer or surgical intervention recommended. Unfortunately patient has not yet been able to have biopsies obtained for definitive diagnosis as recommended by Oncology and has not yet been evaluated by Neurosurgery. She has been unable to complete her PET scan as recommended. -Admit to medical with telemetry -Pain control with Morphine PRN -Flexeril 10mg po q 8 hours PRN -Heat as needed -Zofran PRN nausea -Ortho-Spine consulted here at [facility] - no coverage listed for tomorrow 08/08/24 -Dexamethasone 20mg IV q 8 hours x 3 doses followed by Dexamethasone 10mg IV q 8 hours x 3 doses (has 2 doses left) -Transfer center at [facility] is to review this case tomorrow for possible acceptance. (2) Hypertension: Plan: Chronic. Blood pressure has been elevated -pain control -Continue Amlodipine (3) Hypercalcemia: Plan: Discussed with oncology Dr Vasques and gave Zolendronic acid 3.5mg IV on 08/06, IV saline Calcium virtually normalized today - Ca 10.4, iCa 1.25 -monitor daily for now Plan Depression - chronic, stable -Continue Sertraline 50mg po qHS History of Present Illness Chief Complaint: back pain Primary Care Provider: DO Raza Reaponcho Lizama is a 58yo female with history of HTN presenting with back pain following a fall. Patient was seen at an Urgent Care in April 2024 with right sided sciatic pain and was prescribed a muscle relaxer and a steroid which did improve some of the symptoms. She had recurrence of her symptoms and was seen at [facility] ER on 05/28/24 with complaint of lower back pain with radiation down the right leg and into the foot. She had a non-contrast CT of the lumbar spine which revealed lytic lesions of L4 and L5 concerning for cancer, possible multiple myeloma. Patient was seen by her PCP on 06/06/24 and was prescribed additional Prednisone. She had additional CT imaging of Chest/Abdomen and Pelvis on 06/15/24 for staging which revealed osteolytic skeletal lesions notably at T8, L4 and L5 - metastasis vs multiple osteoma. L4 and L5 retropulsion with epidural extension of tumor resulting in severe canal stenosis. Indeterminate left adnexal lesion measuring up to 5.8cm. No LAD. She was seen by Hematology/Oncology on 07/08/24. Recommended IR guided biopsy of the lytic lesions. Patient's reports that they had an appointment last month to be assessed by Neurosurgery/Spine at [facility] but this appointment was cancelled by [facility]. Patient presented to [facility] ER on 08/06/24 with acute back pain. She fell at home and was pulling herself up. She felt a "Pop" in her mid thoracic area which initially did not hurt. However, she developed significant pain in the mid- thoracic region with muscle spasm and cramping which prompted her to come to the ER. She does not complain of any neurologic deficit - numbness, tingling, bowel or bladder issues. In the ER patient had a CT which showed a soft tissue mass centered within the T8 vertebral body with extension into the spinal canal and near-total obstruction of the vertebral body which has progressed. Unfortunately at the time the patient presented to the ER, the MRI machine at [facility] was under maintenance and non-functioning. The patient was discussed with Dr. Mosley at [facility] and accepted for transfer. The patient was started on IV Dexamethasone (20mg IV q 8 hours x 3 doses followed by 10mg IV q 8 hours x 3 doses). The hospitalist service was consulted for possible admission. Patient did remain in the ER pending transfer to [facility]. On 08/07/24 the MRI machine at [facility] was repaired and the patient was able to receive imaging. Full reports of all imaging below, in summary, MRI of Thoracic and Lumbar spine revealed unchanged lesions the L4 and L5 vertebral bodies as well as the sacrum most likely due to metastatin disease. Unchanged L5 compression fracture. Severe spinal stenosis at L4-L5 due to disc bulge and 6mm retropulsion of bone from the fractured and infiltrated L5 vertebral body. Unchanged lesion of T8 vertebrae, unchanged compression fracture. No cord edema or myelomalacia. Results and imaging reviewed by Dr. Weiss from [facility] who stated that there was no need for transfer to [facility] and no need for urgent surgical intervention. Therefore, the transfer to [facility] was cancelled by ER attending, Dr. Juan. Upon discussion with patient's , he is very concerned about the progressive pain that patient has been experiencing as well as the decline in mobility. He does not think it is possible to place the patient in a car and drive to [place] due to her ongoing pain and limited mobility. I reached out to the Hospitalist team at [facility] for a non-emergent transfer with hopes that patient would be transported in an ambulance and would be able to have her IR guided biopsies and Neurosurgery evaluations performed. Hospitalist team denied transfer stating that these services should be arranged outpatient. Transfer will be reviewed in AM 08/08/24 by Transfer team at [facility]. While in the ER patient was given Ativan prior to MRI after which she became agitated, confused and hypoxic. She was placed on Oxymask with improved saturations One to one sitter for patient pulling at medical support equipment Allergies Allergy/AdvReac Type Severity Reaction Status Date / Time Sulfa (Sulfonamide Allergy Severe Hives Verified 08/06/24 17:40 Antibiotics) tuberculin, purified protein Allergy Severe Itching Verified 08/06/24 17:43 deriva Home Medications Medication Instructions Recorded Confirmed Type acetaminophen 500 mg tablet 1,000 mg PO Q6H PRN Pain 01/05/22 08/06/24 History (Tylenol Extra Strength) melatonin 5 mg capsule 5 mg PO HS PRN Sleep 05/19/22 08/06/24 History ibuprofen 200 mg tablet (Advil) 400 - 600 mg PO Q6H PRN Pain 05/28/24 08/06/24 History amlodipine 5 mg tablet 5 mg PO QPM #90 tabs 07/01/24 08/06/24 Rx cyclobenzaprine 10 mg tablet 10 mg PO Q12H PRN muscle spasm 30 07/29/24 08/06/24 Rx days #60 tabs oxycodone 5 mg tablet See Rx Instructions PO Q6H PRN 07/29/24 08/06/24 Rx pain 3 days #24 tabs sertraline 50 mg tablet 50 mg PO HS 08/06/24 08/06/24 History Past Med/Surg History Problem List Lumbar spine tumor (Acute) Hypercalcemia (Acute) Thoracic spine tumor (Acute) Hypovitaminosis D Hypertension (Chronic) Medical History Impaired fasting glucose Family history of factor V Leiden mutation Anxiety Chronic pain syndrome Depression Fatigue Surgical History History of cholecystectomy (~1989) Family History Father Liver cancer Brother Tobacco abuse Mother Spinal stenosis Uncle Colorectal cancer Denies family history of Ovarian cancer Prostate cancer Breast cancer Social History Smoking Status: Never smoker Second Hand Exposure: No; Do You Dip or Chew Tobacco: No; Hx Alcohol Use: Yes (occasional) Hx Substance Use: No Preferred Language: [place] Insurance Law Specialist Required: No Beliefs That Will Affect Care: Adventism marital status: current occupational status: employed Feels Safe at Home: Yes caffeine: Yes (1 cup of coffee in am) Dental Care, Regularly: No Seatbelt Use: always Review of Systems Review of Systems: All systems reviewed & are unremarkable except as noted in HPI & below Physical Exam Physical Exam: General: patient resting comfortably, confused after receiving Ativan, NAD Skin: warm, dry, intact, no rashes or lesions HEENT: NC/AT, PERRL, EOMI, anicteric sclera, conjunctiva without injection, external ear normal to inspection and nontender, nares patent, moist mucus membranes, dentition intact, no oropharyngeal lesions, neck supple, trachea midline, no LAD, no thyromegaly, no JVD Heart: +S1/S2, regular, no m/r/g Lungs: equal air entry bilaterally, no rales/rhonchi/wheezes Abd: +BS, soft, NT/ND, no masses/organomegaly/ascites Ext: warm, 2+ pulses in UE/LE bilaterally, no clubbing/cyanosis or edema Neuro: nonfocal, speech intact, no facial droop, moving all extremities on command with equal strength 5/5 Results & Data Results & Data Vital Signs (Past 12 Hours) Vital Signs Pulse Pulse Resp BP BP Pulse Ox O2 Del Method 08/07/24 20:21 100 H 17 177/92 H 93 Non-rebreather 08/07/24 20:02 89 L Oxymask, Non-rebreather 08/07/24 19:48 81 L Room Air, Oxymask 08/07/24 19:29 102 H 17 167/94 H 90 Nasal Cannula 08/07/24 17:06 110 H 20 182/80 H 92 Nasal Cannula 08/07/24 15:30 103 H 24 147/101 H 89 L 08/07/24 15:03 108 H 25 H 171/107 H 94 Nasal Cannula 08/07/24 14:06 110 H 26 H 155/109 H 94 Nasal Cannula 08/07/24 14:01 155/109 H 08/07/24 13:36 113 H 30 H 172/95 H 94 Nasal Cannula 08/07/24 13:12 114 H 15 95 Nasal Cannula 08/07/24 13:06 171/78 H 08/07/24 12:54 101 H 28 H 92 Nasal Cannula 08/07/24 12:30 194/114 H 08/07/24 12:15 114 H 25 H 95 Nasal Cannula 08/07/24 11:33 114 H 17 184/91 H 94 Nasal Cannula 08/07/24 10:11 18 08/07/24 10:00 106 H 22 93 08/07/24 09:57 106 H 22 92 O2 Flow Rate 08/07/24 20:21 7 08/07/24 20:02 10 08/07/24 19:48 08/07/24 19:29 5 08/07/24 17:06 2 08/07/24 15:30 08/07/24 15:03 5 08/07/24 14:06 5 08/07/24 14:01 08/07/24 13:36 5 08/07/24 13:12 5 08/07/24 13:06 08/07/24 12:54 5 08/07/24 12:30 08/07/24 12:15 5 08/07/24 11:33 5 08/07/24 10:11 08/07/24 10:00 08/07/24 09:57 Laboratory Results Laboratory Results WBC 9.90 K/ul (4.8-10.8) 02/06/25 05:09 RBC 4.04 M/uL (4.20-5.40) L 08/07/24 05:09 Hgb 12.9 g/dl (12.0-16.0) 08/07/24 05:09 Hct 37.3 % (37.0-47.0) 08/07/24 05:09 MCV 92.3 fL (80.0-100.0) 08/07/24 05:09 MCH 31.9 pg (25.0-34.0) 08/07/24 05:09 MCHC 34.6 g/dL (32.0-36.0) 08/07/24 05:09 RDW Std Deviation 45.4 fL (36.4-46.3) 08/07/24 05:09 RDW Coeff of [place] 13.3 % (11.5-14.5) 08/07/24 05:09 Plt Count 301 K/uL (130-400) 08/07/24 05:09 MPV 10.3 fL (9.4-12.4) 08/07/24 05:09 Immature Gran % (Auto) 0.5 % 08/07/24 05:09 Neut % (Auto) 93.5 % 08/07/24 05:09 Lymph % (Auto) 4.6 % 08/07/24 05:09 [place] % (Auto) 1.2 % 08/07/24 05:09 Eos % (Auto) 0.0 % 08/07/24 05:09 Baso % (Auto) 0.2 % 08/07/24 05:09 Neut # (Auto) 9.25 K/uL (1.40-6.50) H 08/07/24 05:09 Lymph # (Auto) 0.46 K/uL (1.20-3.40) L 08/07/24 05:09 [place] # (Auto) 0.12 K/uL (0.11-0.59) 08/07/24 05:09 Eos # (Auto) 0.00 K/uL (0.00-0.50) 08/07/24 05:09 Baso # (Auto) 0.02 K/uL (0.00-0.20) 08/07/24 05:09 Immature Gran # (Auto) 0.05 K/uL (0.01-0.20) 08/07/24 05:09 Polychromasia 1+ 08/07/24 05:09 PT 10.8 Seconds (9.0-12.0) 08/06/24 16:00 INR 1.0 (0.9-1.1) 08/06/24 16:00 APTT 25 Seconds (21-31) 08/06/24 16:00 PTT Ratio 0.9 08/06/24 16:00 Sodium 136 mmol/L (136-145) 08/07/24 05:09 Potassium 4.4 mmol/L (3.5-5.1) 08/07/24 05:09 Chloride 100 mmol/L (98-107) 08/07/24 05:09 Carbon Dioxide 31 mmol/L (21-32) 08/07/24 05:09 Anion Gap 5 (3-11) 08/07/24 05:09 BUN 20 mg/dl (6-23) 08/07/24 05:09 Creatinine 0.77 mg/dl (0.6-1.2) D 08/07/24 05:09 Est Cr Clr Drug Dosing 83.9 ml/min 08/07/24 05:09 eGFR 88.26 08/07/24 05:09 BUN/Creatinine Ratio 26.0 (10-20) H 08/07/24 05:09 Glucose 162 mg/dl (70-99(Fasting)) H 08/07/24 05:09 POC Glucose 155 mg/dl (70-99) H 08/07/24 19:57 Calcium 10.4 mg/dl (8.6-10.3) H D 08/07/24 05:09 Ionized Calcium 1.25 mmol/L (1.12-1.32) 08/07/24 05:09 Magnesium 2.0 mg/dl (1.7-2.4) 08/06/24 16:00 Total Bilirubin 0.9 mg/dl (0.2-1.0) 08/06/24 16:00 AST 58 U/L (13-39) H 08/06/24 16:00 ALT 97 U/L (7-52) H 08/06/24 16:00 Alkaline Phosphatase 112 U/L (34-104) H 08/06/24 16:00 Total Protein 8.2 gm/dl (6.0-8.3) 08/06/24 16:00 Albumin 4.9 gm/dl (3.4-5.0) 08/06/24 16:00 Globulin 3.3 gm/dl (2.5-4.0) 08/06/24 16:00 Albumin/Globulin Ratio 1.5 (0.9-2) 08/06/24 16:00 Urine Color Yellow 08/07/24 02:24 Urine Appearance Clear (Clear) 08/07/24 02:24 Urine pH 7.0 (4.5-7.5) 08/07/24 02:24 Ur Specific [place] 1.041 (1.000-1.030) H 08/07/24 02:24 Urine Protein Negative (Negative) 08/07/24 02:24 Urine Glucose (UA) Negative (Negative) 08/07/24 02:24 Urine Ketones Negative (Negative) 08/07/24 02:24 Urine Blood Negative (Negative) 08/07/24 02:24 Urine Nitrite Negative (Negative) 08/07/24 02:24 Urine Bilirubin Negative (Negative) 08/07/24 02:24 Urine Urobilinogen Negative (Negative) 08/07/24 02:24 Ur Leukocyte Esterase 1+ (Negative) H 08/07/24 02:24 Urine WBC (Auto) 11-20 /hpf (0-5) H 08/07/24 02:24 Urine RBC (Auto) 0-2 /hpf (0-2) 08/07/24 02:24 U Hyaline Cast (Auto) 0-2 /lpf (0-2) 08/07/24 02:24 U Epithel Cells (Auto) 0-2 /hpf (0-2) 08/07/24 02:24 Urine Bacteria (Auto) None Seen (None Seen) 08/07/24 02:[address] 08/06/24 15:18 EXAMINATION: CT lumbar spine W/O con CLINICAL HISTORY: Multiple myeloma, masses within the spine, pain PRIORS: 06/15/[address] TECHNIQUE: Contiguous axial images were obtained through the lumbar spine without the use of intravenous contrast. Sagittal and coronal reformations are supplied. FINDINGS: Soft tissue masses are centered within the L4 and L5 vertebral bodies. Within the L4 vertebral body, this is predominantly within the anterior vertebral body with moderate erosion/destruction of the vertebral body. The posterior cortex is intact. No high-grade compression fracture. The L5 vertebral body the soft tissue mass is present within the vertebral body and extending posteriorly. Total destruction of the posterior cortex and inferior and superior endplates is noted, progressed when compared to 06/15/2024. The soft tissue mass extends into the spinal canal. Moderate to high-grade facet hypertrophic changes present at these levels. No soft tissue mass or destruction involving the L1-L3 levels. The sacrum is unremarkable. Moderate atherosclerotic disease of the abdominal aorta in the [id number]. No free fluid in the visualized abdomen or pelvis. No retroperitoneal adenopathy. IMPRESSION: 1. Soft tissue masses are present and expanding within the L4 and L5 vertebral bodies, progressed since the prior examination. At the L5 level, that soft tissue mass extends into the spinal canal with near-total destruction of the vertebral body and posterior wall. ACT 112: Positive. There are findings on this examination that require communication between the performing entity and the patient following Patient Test Result Information Act ([place] ACT 112) guidelines. Electronically signed by Mary Donnelly 08-06-2024 5:[address] 08/06/24 15:18 EXAMINATION: CT thoracic spine with contrast CLINICAL HISTORY: Multiple myeloma, masses within the spine, pain PRIORS: 06/15/[address] TECHNIQUE: Contiguous axial images were obtained through the thoracic spine without the use of intravenous contrast. Sagittal and coronal reformations are supplied. FINDINGS: A soft tissue mass is present within the T8 vertebral body with extension into the thecal sac with near-total complete destruction of the T8 vertebral body, progressed in the interval, image 50, series 901. Mild diffuse osseous demineralization noted with moderate degenerative change of the thoracic spine. Mild kyphosis is present. Multilevel anterior bridging osteophytes present. Paraspinal muscle bulk within normal limits. No pleural effusion. IMPRESSION: 1. Soft tissue mass centered within the T8 vertebral body with extension into the spinal canal and near-total destruction of the vertebral body, progressed. ACT 112: Positive. There are findings on this examination that require communication between the performing entity and the patient following Patient Test Result Information Act ([place] ACT 112) guidelines. Electronically signed by Mary Donnelly 08-06-2024 5:57 PM Chest CTA 08/06/24 15:19 EXAMINATION: CT angio chest PE protocol CLINICAL HISTORY: Bone cancer, tumors and spine, worsening spine pain, multiple myeloma, PRIORS: Chest CT 06/15/2024 TECHNIQUE: Contiguous axial images were obtained through the chest with the use of intravenous contrast. Sagittal and coronal reformations are supplied. FINDINGS: The pulmonary arteries are normal in size and well opacified no central or peripheral pulmonary embolism. No pneumonia or pneumothorax. No dominant mass in the chest. No pleural or pericardial effusion. Trachea and mainstem bronchi patent. In bone windows, advanced lucency present within the eighth thoracic vertebral body with large soft tissue mass present, image 99, series 8, extending into the spinal canal on the current examination. IMPRESSION: 1. No central or peripheral pulmonary embolism. 2. Soft tissue mass with destruction of the T8 vertebral body, extending into the spinal canal.. ACT 112: Positive. There are findings on this examination that require communication between the performing entity and the patient following Patient Test Result Information Act ([place] ACT 112) guidelines. Electronically signed by Mary Donnelly 08-06-2024 5:57 PM Lumbar Spine MRI 08/07/24 16:07 Clinical History: Fall 2 days ago Technique: Sagittal and axial T1 and T2-weighted magnetic resonance images were obtained of the lumbar spine without gadolinium contrast. Comparison is made to the CT of the lumbar spine dated 08/06/2024 Findings: There is unchanged grade 1 anterolisthesis at L4-5. There is an unchanged L5 compression fracture with loss of up to 50% of the vertebrae height centrally. There is abnormal signal involving nearly the entire L5 vertebral body with bony expansion posteriorly into the spinal canal of up to 6 mm. Again seen is a lesion within the anterior aspect of the L4 vertebral body. There is unchanged focal concavity of the inferior endplate of the L4 vertebral body that may be due to a Schmorl's node. There is a partially visualized lesion of low T1 signal intensity in the left lateral sacrum. There is no definite sign of infection. There is no sign of acute ligamentous injury. The conus medullaris appears normal, terminating at the level of L1. There is a partially visualized small right renal cyst At L1-L2, there is a minimal disc bulge without spinal stenosis or nerve root compression At L2-L3, there is a minimal disc bulge without spinal stenosis or nerve root compression At L3-L4, there is a mild disc bulge without spinal stenosis. There is slight encroachment upon both neural foramen. No clear nerve root compression is seen. At L4-L5, there is severe spinal stenosis due to a disc bulge, facet osteoarthritis, and the retropulsion of bone from the L5 vertebrae. There is mild right neural foramen narrowing At L5-S1, there is a mild disc bulge without spinal stenosis. There is bilateral neural foramen narrowing that may affect the exiting L5 nerve roots Impression: 1. Unchanged lesions within the L4 and L5 vertebral bodies as well as the sacrum, most likely due to metastatic disease 2. Unchanged L5 compression fracture 3. Severe spinal stenosis at L4-5 due to a disc bulge and facet osteoarthritis as well as 6 mm of retropulsion of bone from the fractured and infiltrated L5 vertebral body 4. Bilateral neural foramen narrowing at L5-S1 that may affect the exiting L5 nerve roots 5. Mild anterolisthesis at L4-5 Electronically signed by Bernard Victoria 08-07-2024 7:26 PM Thoracic Spine MRI 08/07/24 16:07 Clinical history: Back pain. Fall 2 days ago Technique: Sagittal and axial T1 and T2-weighted magnetic resonance images were obtained of the thoracic spine without gadolinium contrast Comparison is made to the chest CT dated 06/13/2024 Findings: The thoracic vertebrae are in normal alignment with no listhesis seen. Again seen is a lesion throughout the T8 vertebral body and extending into the left pedicle, with low T1 and partially high T2 signal intensity. There is an unchanged T8 compression fracture with loss of up to 30% of the vertebrae height centrally. There is a mild old T2 compression fracture. There is no sign of acute ligamentous injury. There is no definite sign of infection. The spinal cord is of normal signal intensity with no focal lesion seen. There are predominantly anterior disc bulges throughout the thoracic spine. No definite disc herniation is seen at any level. There is mild spinal stenosis at the level of T8 due to posterior protrusion of bone of up to 2 mm Impression: 1. Unchanged lesion involving the T8 vertebra, most likely due to metastatic disease. 2. Unchanged T8 compression fracture. It is difficult to determine whether this is subacute or old given the abnormal signal from the osseous lesion 3. Mild old T2 compression fracture 4. Mild spinal stenosis at the level of T9 with mild spinal cord deformity due to retropulsion of bone and bony expansion from the T8 fracture and osseous lesion. No cord edema or myelomalacia is seen 5. No definite nerve root compression Electronically signed by Bernard Victoria 08-07-2024 7:12 PM Diagnostic Findings PRIOR IMAGING RESULTS: [facility] [place] [phone] CT Scan Report Patient: NAILA LIZAMA Admit Date: 05/28/24 MR#: [id number] Address1: [address] Acct ID:[id number] Address2: Date: 1965 [facility] Zip: [place] [id number] Age: 58 Location: ED Sex: F Room/Bed: Att Phy: Diagnosis: SCIATICA PAIN, KORI HORSES WHEN WALKING Funmi Phy: Talha Hernandez DO Service Date: 05/28/24 [facility] Phy: Interpreting Phy: Tito Puri MDAdmit Phy: Ordering Phy: Lavell Bauer PA cc: ~ CT OF THE LUMBAR SPINE CLINICAL HISTORY: Right lower lumbar radiculopathy. COMPARISON STUDY: Lumbar spine radiographs August 17, 2006. TECHNIQUE: Helical axial images of the lumbar spine were obtained. Sagittal and coronal reconstructions were viewed. Automated exposure control was utilized for the study. A dose lowering technique was utilized adhering to the principles of ALARA. FINDINGS: For purposes of numbering on this exam, the L5-S1 disc space is assigned to axial image 322 of 367. Several lytic lesions within the lower lumbar spine and sacrum are present including a 2.5 cm lesion within the L4 vertebral body, a 3.3 cm lesion within the L5 vertebral body and a 2.7 cm lesion within the left inferior sacrum. There are pathologic fractures of L4 and L5 with epidural extension of tumor at the L5 level. Retropulsion to L5 level of 1.2 cm is present. Although suboptimally assessed by CT, retropulsion and epidural extension of tumor at the L4-L5 and L5 levels results in severe central canal stenosis. There is also moderate narrowing of the bilateral L5-S1 neural foramen and mild narrowing of the bilateral L4-L5 neural foramen. No additional lumbar spine fractures are present. Small bilateral renal calculi measure up to 3 mm per there is no hydronephrosis. There is moderate multilevel facet arthrosis and mild degenerative disc disease within the lumbar spine. IMPRESSION: Several lytic lesions within the lower lumbar spine and sacrum, as described above. Associated L4 and L5 pathologic fractures with retropulsion and epidural extension of tumor at the L5 level which results in severe central canal stenosis at the L4-L5 and L5 levels. The findings are neoplastic in etiology and favor metastatic disease or multiple myeloma. Correlation with oncologic history is recommended. The findings could be further assessed with lumbar spine MRI with and without contrast. ACT 112: Positive. There are findings on this exam that require communication between the performing entity and the patient following Patient Test Result Information Act ([place] Act 112) guidelines. Electronically signed by: Tito Puri M.D. 05/28/2024 8:59 AM Dictated: 05/28/24844 Transcribed: 05/28/24844 [facility], [place] [phone] CT Scan Report Patient: NAILA LIZAMA Admit Date: 06/15/24 MR#: [id number] Address1: [facility] [address] Acct ID:[id number] Address2: Date: 1965 [facility] [address] Age: 58 Location: CT Sex: F Room/Bed: Att Phy: Sandra Smith PA-C Diagnosis: R93.7 - Abnormal findings on diagnostic imaging of Funmi Phy: Talha Hernandez DO Service Date: 06/15/24 Fam Phy: Interpreting Phy: Den Brock Phy: Ordering Phy: Sandra Smith PA-C cc: ~ CT CHEST WITH IV CONTRAST; ABDOMEN AND PELVIS CT WITH IV AND ORAL CONTRAST CT DOSE: 2275.96 mGy.cm HISTORY: Follow-up study in a patient with lytic bone lesions R93.7 - Abnormal findings on diagnostic imaging of other ... TECHNIQUE: Multiaxial CT images of the chest, abdomen and pelvis were performed following the IV administration of 94 cc of Optiray and oral contrast. A dose lowering technique was utilized adhering to the principles of ALARA. COMPARISON STUDY: CT lumbar spine 05/28/2024 FINDINGS: CT CHEST: Unremarkable thyroid. No lymphadenopathy. The heart is normal in size without pericardial effusion. Moderate coronary artery calcifications. No thoracic aortic aneurysm or pulmonary emboli. There is no pneumothorax, pleural effusion, airspace consolidation or pulmonary edema. There are no suspicious pulmonary nodules or masses identified. Central airways are patent. Unremarkable soft tissues. There is an expansile lytic bone lesion involving the T8 vertebral body with mild vertebral body height loss. The lesion extends into the left pedicle. No large epidural component. There is mild bowing/expanse of the posterior cortex without high-grade stenosis. CT ABDOMEN/PELVIS: No pneumatosis or pneumoperitoneum. The spleen, pancreas and adrenal glands are unremarkable. Cholecystectomy is likely postsurgical biliary ductal dilation. Unremarkable liver with patency of the hepatic and portal veins. There are a few nonobstructing calculi noted within the kidneys measuring up to approximately 3 mm bilaterally. Probable cysts of the kidneys measure up to 1.2 cm on the right. Decompressed urinary bladder with wall thickening. Complex left adnexal soft tissue attenuating lesions measure up to 5.8 cm. Atherosclerosis of the aorta without aneurysm. No lymphadenopathy. No bowel obstruction or bowel wall thickening. Colonic diverticulosis without acute diverticulitis. Moderate colonic fecal retention. Normal appendix. Lytic bone lesions are again noted in the lower lumbar spine and sacrum, notably at L4-L5 and also within the inferior sacrum There are pathologic fractures of L4 and L5 with epidural extension of tumor at the L5 level. Retropulsion to L5 level of 1.2 cm is present. Although suboptimally assessed by CT, retropulsion and epidural extension of tumor at the L4-L5 and L5 levels results in severe central canal stenosis. There is also moderate narrowing of the bilateral L5-S1 neural foramen and mild narrowing of the bilateral L4-L5 neural foramen. IMPRESSION: 1. 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 Differential considerations again include metastasis from unknown primary versus multiple osteoma. 2. L4 and L5 retropulsion with epidural extension of tumor redemonstrated resulting in severe central canal stenosis. 3. Indeterminate left adnexal lesions measure up to 5.8 cm. Follow-up with gynecology recommended. 4. No acute intrathoracic abnormality. 5. No lymphadenopathy. 6. Cholecystectomy. ACT 112: Negative or not required by law. The above report was generated using voice recognition software. It may contain grammatical, syntax or spelling errors. Electronically signed by: Den Lema M.D. 06/16/2024 2:37 PM Dictated: 06/16/241411 Transcribed: 06/16/241411 [facility], [place] [phone] CT Scan Report Patient: NAILA LIZAMA Admit Date: 06/15/24 MR#: [id number] Address1: [facility] [address] Acct ID:[id number] Address2: Date: 1965 [facility] Zip: [place] [address] Age: 58 Location: CT Sex: F Room/Bed: Att Phy: Sandra Smith PA-C Diagnosis: R93.7 - Abnormal findings on diagnostic imaging of Funmi Phy: Talha Hernandez DO Service Date: 06/15/24 Fam Phy: Interpreting Phy: Den LemaAdmit Phy: Ordering Phy: Sandra Smith PA-C cc: ~ CT CHEST WITH IV CONTRAST; ABDOMEN AND PELVIS CT WITH IV AND ORAL CONTRAST CT DOSE: 2275.96 mGy.cm HISTORY: Follow-up study in a patient with lytic bone lesions R93.7 - Abnormal findings on diagnostic imaging of other ... TECHNIQUE: Multiaxial CT images of the chest, abdomen and pelvis were performed following the IV administration of 94 cc of Optiray and oral contrast. A dose lowering technique was utilized adhering to the principles of ALARA. COMPARISON STUDY: CT lumbar spine 05/28/2024 FINDINGS: CT CHEST: Unremarkable thyroid. No lymphadenopathy. The heart is normal in size without pericardial effusion. Moderate coronary artery calcifications. No thoracic aortic aneurysm or pulmonary emboli. There is no pneumothorax, pleural effusion, airspace consolidation or pulmonary edema. There are no suspicious pulmonary nodules or masses identified. Central airways are patent. Unremarkable soft tissues. There is an expansile lytic bone lesion involving the T8 vertebral body with mild vertebral body height loss. The lesion extends into the left pedicle. No large epidural component. There is mild bowing/expanse of the posterior cortex without high-grade stenosis. CT ABDOMEN/PELVIS: No pneumatosis or pneumoperitoneum. The spleen, pancreas and adrenal glands are unremarkable. Cholecystectomy is likely postsurgical biliary ductal dilation. Unremarkable liver with patency of the hepatic and portal veins. There are a few nonobstructing calculi noted within the kidneys measuring up to approximately 3 mm bilaterally. Probable cysts of the kidneys measure up to 1.2 cm on the right. Decompressed urinary bladder with wall thickening. Complex left adnexal soft tissue attenuating lesions measure up to 5.8 cm. Atherosclerosis of the aorta without aneurysm. No lymphadenopathy. No bowel obstruction or bowel wall thickening. Colonic diverticulosis without acute diverticulitis. Moderate colonic fecal retention. Normal appendix. Lytic bone lesions are again noted in the lower lumbar spine and sacrum, notably at L4-L5 and also within the inferior sacrum There are pathologic fractures of L4 and L5 with epidural extension of tumor at the L5 level. Retropulsion to L5 level of 1.2 cm is present. Although suboptimally assessed by CT, retropulsion and epidural extension of tumor at the L4-L5 and L5 levels results in severe central canal stenosis. There is also moderate narrowing of the bilateral L5-S1 neural foramen and mild narrowing of the bilateral L4-L5 neural foramen. IMPRESSION: 1. 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 Differential considerations again include metastasis from unknown primary versus multiple osteoma. 2. L4 and L5 retropulsion with epidural extension of tumor redemonstrated resulting in severe central canal stenosis. 3. Indeterminate left adnexal lesions measure up to 5.8 cm. Follow-up with gynecology recommended. 4. No acute intrathoracic abnormality. 5. No lymphadenopathy. 6. Cholecystectomy. ACT 112: Negative or not required by law. The above report was generated using voice recognition software. It may contain grammatical, syntax or spelling errors. Electronically signed by: Den Lema M.D. 06/16/2024 2:37 PM Dictated: 06/16/241411 Transcribed: 06/16/241411 ECG Additional Comments: [place], [place] Electrocardiogram Report Signed Patient: NAILA LIZAMA Admit Date: 08/06/24 MR#: [id number] Att Phy: Acct ID: [id number] Funmi Phy: Talha Hernandez DO Date: 1965 Fam Phy: Age: 58 Location: ED Sex: F Room/Bed: cc: DICTATED BY: José Antonio Francis MD Test Reason : Blood Pressure : */* mmHG Vent. Rate : 97 BPM Atrial Rate : 97 BPM P-R Int : 140 ms QRS Dur : 76 ms QT Int : 346 ms P-R-T Axes : 50 -26 88 degrees QTcB Int : 439 ms Normal sinus rhythm Normal ECG No previous ECGs available Confirmed by José Antonio Francis ([id number]) on 08/07/2024 7:44:53 AM Referred By: REFERRED SELF Confirmed By: José Antonio Francis Signed By: 08/07/24 0744 Dictated: 08/06/242130 Transcribed: Instrumentation And Controls Technician: The status of this report is Signed. Draft = Not yet reviewed or approved by Medical Physician. Signed = Reviewed and approved by Medical Physician. 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
[2024-08-07] MEDS ORDERED: MoRPHine SULFATE 2 MG/ML CARP IV PRN (22:43)
[2024-08-07] MEDS ORDERED: ONDANSETRON INJ 2 MG/ML 2 ML VIAL IV PRN (22:43)
[2024-08-07] MEDS: ENOXAPARIN INJ 40 MG/0.4 ML SYR SQ SCH (23:24)
[2024-08-08] MEDS: dexAMETHasone 10 MG in SYRINGE 0 ML IV SCH (01:29)
[2024-08-08 07:28] LABS: Hematocrit (blood only) 35.2 % (37.0-47.0); Mean Corpuscular Hemoglobin 31.7 pg (25.0-34.0); Mean Corpuscular Hgb Conc 34.1 g/dL (32.0-36.0); Mean Corpuscular Volume 93.1 fL (80.0-100.0); Mean Platelet Volume 10.3 fL (9.4-12.4); Platelet Count 320 K/uL (130-400); RDW Coefficient of Variation 13.2 % (11.5-14.5); RDW Standard Deviation 45.6 fL (36.4-46.3); Red Blood Count 3.78 M/uL (4.20-5.40); White Blood Count 19.11 K/ul (4.8-10.8)
--- NOTE | 2024-08-08 07:56 | Hospitalist Progress Note ---
Date of Service August 08, 2024 Assessment & Plan (1) Thoracic spine tumor: Plan: 58yo female with recently diagnosed thoracic and lumbar lytic lesions concerning for metastatic disease vs myeloma presenting after a fall at home. CT imaging as above with complete destruction of T8 with extension into her spinal column. Also with severe lumbar spinal stenosis at L4-5 related to L4 disc bulge and retropulsion from L5 compression fracture, L5 lesion. MRI with no cord involvement. Patient was initially slated for transfer to [facility]. Unfortunately this transfer was cancelled by the ER based on MRI results and discussion with Neurosurgery at [facility]- no urgent transfer or surgical intervention recommended. Unfortunately patient has not yet been able to have biopsies obtained for definitive diagnosis as recommended by Oncology and has not yet been evaluated by Neurosurgery. She has been unable to complete her PET scan as recommended. On presentation to the ED she was hypercalcemic which improved after zolendronic acid and IV fluids. She remained hypertensive and tachycardic (sinus). CTA chest was negative for PE or pulmonary infiltrates. She was found to have urinary retention and milligan catheter was placed. She developed worsening hypoxia after lorazepam given for MRI. -Discussed with Dr. Vasques - recommended bone marrow biopsy, I discussed with radiology today IR provider not on duty will have to be done Sunday -Continue dexamethasone -Pain control with Morphine PRN -Flexeril 10mg po q 8 hours PRN -Heat as needed -Zofran PRN nausea - trying to consult Ortho spine here at [facility] - no coverage listed today so probably not available, I sent a message to Dr. Chavez but did not hear back -Dexamethasone 20mg IV q 8 hours x 3 doses followed by Dexamethasone 10mg IV q 8 hours x 3 doses (has 2 doses left). leukocytosis is related to steroids she still may require transfer to [facility] if we cannot make reasonable progress with this (2) Acute hypoxic respiratory failure: Plan: effect of IV lorazepam last night causing hypoventilation, also I am suspicious of acute diastolic heart failure - obtained BNP which is elevated at 200, gave Lasix 40 mg IV and metoprolol, heart rate came down to the 80s after that - obtained TTE reviewedhyperdynamic LVEF greater than 70% normal LV wall motion, mild concentric LVH grade 1 diastolic dysfunction, normal RV, limited but no obvious valvular disease - we will continue gentle diuresis, a.m. BMP and magnesium, monitor I's/O, daily weights (3) Hypertension: Plan: Appears to be chronically uncontrolled but severe yesterday. -pain control -Continue Amlodipine but increase to 10 mg HS -Added metoprolol 25 mg tid - diuresis - improved today (4) Sinus tachycardia: Plan: Has been consistently elevated 110s-120, also hypertension and worsening hypoxia. CTA negative for PE and pulmonary infiltrates in ED see above TSH low at 0.28, however free T4 is normal at 0.96, TSH was normal in June 2024, likely euthyroid sick rather than hyperthyroidism, recommend repeat TFTs in 4-6 weeks as outpatient. (5) Hypercalcemia: Plan: related to bone lesions Discussed with oncology Dr Vasques and gave Zolendronic acid 3.5mg IV on 08/06, IV saline Calcium virtually normalized 08/07 - Ca 10.4, iCa 1.25, normal to 08/08 at 9.3 -monitor daily for now Plan Depression - chronic, stable -Continue Sertraline 50mg po qHS DVT prophylaxis - enoxaparin I updated her at bedside 08/07 Admission and Anticipated Discharge Date Admission Date: August 07, 2024 Subjective back pain and bilateral foot dysesthesia has improved on dexamethasone she had severe hypoxia after receiving IV lorazepam last night for MRIs, hypoxia did improve throughout the night but continues to have high O2 requirement and dyspnea she does have some anasarca and bilateral lower extremity edema, no history of heart failure, has noticed that she does retain fluids when taking her courses of prednisone which are the only thing that seems to help her back pain Physical Exam 2 Physical Exam: PHYSICAL EXAMINATION Last 24h vital signs reviewed, see documentation in flowsheet General: reclining in bed HEENT: Normocephalic, atraumatic, pupils round and equal, sclerae anicteric, no conjunctival injection, moist mucus membranes Lungs: mildly tachypneic but not labored, bibasilar crackles, no wheezing Heart: tachycardic Regular rate and rhythm, no murmurs. cannot see neck veins Abdomen: Soft, nontender, nondistended Bowel sounds present. Milligan catheter in place clear yellow urine Extremities: Warm, dry, well-perfused. 1+ lower extremity edema. mild edema of hands and arms Neuro: Alert and oriented x 4 though a little bit sleepy and intermittently confused, poor memory of events of yesterday, face symmetric, can move arms and legs Psych: Normal affect and behavior Results & Data Results & Data Vital Signs (Past 12 Hours) Vital Signs Temp Pulse Resp BP Pulse Ox O2 Del Method O2 Flow Rate 08/08/24 07:42 98.2 F 96 H 14 155/83 H 95 Oxymask 9 08/08/24 06:42 98.2 F 102 H 20 90 Oxymask 8 08/07/24 23:57 97.7 F 92 H 20 156/92 H 92 Oxymask 8 08/07/24 22:43 98 H 18 196/117 H 98 Oxymask 6 08/07/24 22:19 99 Oxymask, Non-rebreather 7 08/07/24 22:00 97 H 18 194/116 H 94 Non-rebreather 7 08/07/24 20:21 100 H 17 177/92 H 93 Non-rebreather 7 08/07/24 20:02 89 L Oxymask, Non-rebreather 10 08/07/24 19:48 81 L Room Air, Oxymask Laboratory Results 08/08/24 06:44 08/08/24 06:44 PG Care Time/CCT Total # of Minutes Spent Total Time Spent with Patient: Total time spent is greater than 50% in coordination of care (as documented) at patient's floor/unit and/or counseling patient: Coding Level of Care Code 87619 SUB INP/OBS CARE 3/50MIN Diagnoses 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
--- NOTE | 2024-08-08 08:12 | XRay Report ---
EXAM: XR chest 1V portable CLINICAL HISTORY: Hypoxia. TECHNIQUE: An X-ray image of the chest was obtained in AP projection. COMPARISON: CT dated 06/15/2024 was reviewed. FINDINGS: Suboptimal inspiratory effort. Pulmonary Parenchyma: Lungs are clear bilaterally. No evidence of consolidation, collapse, or focal opacities. No pulmonary nodules are identified. Bilateral apical pleural thickening. Minimal blunting of left costophrenic angle could be minimal pleural effusion / pleural thickening. Heart and Mediastinum: Heart size and shape are normal. No mediastinal widening or masses. No hilar or mediastinal lymphadenopathy. Bony Thorax: Bony thorax appears intact without fractures or deformities. Soft Tissues: Soft tissues overlying the chest wall are unremarkable. IMPRESSION: 1. Minimal blunting of left costophrenic angle could be minimal pleural effusion / pleural thickening. 2. No evidence of consolidation or collapse. Electronically signed by Jackie Stephens 08-08-2024 08:11 AM
[2024-08-08 08:21] LABS: Albumin Level 3.8 gm/dl (3.4-5.0); BUN Creatinine Ratio 34.4 (10-20); Bilirubin Direct 0.1 mg/dl (0-0.2); Bilirubin,Total 0.4 mg/dl (0.2-1.0); Calcium 9.3 mg/dl (8.6-10.3); Creatinine Clr Calc Pharmacy 100.9 ml/min; Potassium 4.2 mmol/L (3.5-5.1); Thyroid Stimulating Hormone 0.281 uIu/ml (0.300-4.500); Total Protein 6.4 gm/dl (6.0-8.3)
--- NOTE | 2024-08-08 08:36 | Electrocardiogram Report ---
Test Reason : Blood Pressure : */* mmHG Vent. Rate : 109 BPM Atrial Rate : 109 BPM P-R Int : 122 ms QRS Dur : 90 ms QT Int : 342 ms P-R-T Axes : 52 -26 107 degrees QTcB Int : 460 ms Sinus tachycardia Left ventricular hypertrophy with repolarization abnormality Possible Otherwise Diffuse Inferior infarct Abnormal ECG When compared with ECG of 06-Aug-2024 21:31, Borderline Criteria for Inferior infarct is now Present Confirmed by José Antonio Francis ([id number]) on 08/08/2024 8:36:20 AM Referred By: REFERRED SELF Confirmed By: José Antonio Francis
[2024-08-08 09:17] LABS: T4 Free Thyroxine 0.96 ng/dl (0.61-1.60)
[2024-08-08] MEDS: METOPROLOL TARTRATE 25 MG TAB PO SCH (09:26)
[2024-08-08] MEDS: FUROSEMIDE 40 MG/4 ML VIAL IV ONE (11:26)
--- NOTE | 2024-08-08 12:16 | Oncology Consultation ---
Date of Consultation August 08, 2024 Assessment & Plan (1) Lytic bone lesions on xray: Had a lengthy discussion with the patient again as well as discussed the case with my hospital internal medicine colleagues. Firstly we need a tissue diagnosis. Previously had tried to obtain a tissue diagnosis with help of her spine surgery colleagues versus interventional radiology for a bone biopsy however she was deemed to be very risky. Since multiple myeloma is high on the consideration I have recommended a CT-guided bone marrow biopsy. If needed the patient can be transferred to higher acuity facility especially if she has any needs from spinal surgery standpoint. Otherwise at this point would recommend continued medical management and control of pain as well as other symptoms such as hypercalcemia. All of this will be left to our colleagues from [facility] internal medicine. The recommendation to perform a bone marrow biopsy was discussed with my hospital internal medicine staff Plan . Thank you for this interesting oncological consult. Medical oncology will continue to follow the patient make appropriate recommendations. History of Present Illness Reason for Consultation: Lytic bony lesions compression fracture Attending Physician: Jacinta King, History of Present Illness CT chest abdomen pelvis, 06/15/2024: IMPRESSION: 1. 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 Differential considerations again include metastasis from unknown primary versus multiple osteoma. 2. L4 and L5 retropulsion with epidural extension of tumor redemonstrated resulting in severe central canal stenosis. 3. Indeterminate left adnexal lesions measure up to 5.8 cm. Follow-up with gynecology recommended. 4. No acute intrathoracic abnormality. 5. No lymphadenopathy. 6. Cholecystectomy. Lumbar spine CT, 05/28/2024: IMPRESSION: Several lytic lesions within the lower lumbar spine and sacrum, as described above. Associated L4 and L5 pathologic fractures with retropulsion and epidural extension of tumor at the L5 level which results in severe central canal stenosis at the L4-L5 and L5 levels. The findings are neoplastic in etiology and favor metastatic disease or multiple myeloma. Correlation with oncologic history is recommended. The findings could be further assessed with lumbar spine MRI with and without contrast. previously I had seen this patient in the clinic for lytic bony lesions, had recommended a bone biopsy. I had referred her to spine surgery as well as interventional radiology. I performed a basic workup from a myeloma standpoint. She could never undergo biopsy or C-spine surgery. However she was admitted in the hospital recently with severe back pain. The lytic lesions were demonstrated again with compression fractures of the vertebrae. She was supposed to go to [facility] however was admitted in [facility]. She had a lumbar thoracic spine MRI on 08/07/2024 which again revealed lytic lesions, T8 compression fractures Allergies Allergy/AdvReac Type Severity Reaction Status Date / Time Sulfa (Sulfonamide Allergy Severe Hives Verified 08/06/24 17:40 Antibiotics) tuberculin, purified protein Allergy Severe Itching Verified 08/06/24 17:43 deriva Home Medications Medication Instructions Recorded Confirmed Type acetaminophen 500 mg tablet 1,000 mg PO Q6H PRN Pain 01/05/22 08/06/24 History (Tylenol Extra Strength) melatonin 5 mg capsule 5 mg PO HS PRN Sleep 05/19/22 08/06/24 History ibuprofen 200 mg tablet (Advil) 400 - 600 mg PO Q6H PRN Pain 05/28/24 08/06/24 History amlodipine 5 mg tablet 5 mg PO QPM #90 tabs 07/01/24 08/06/24 Rx cyclobenzaprine 10 mg tablet 10 mg PO Q12H PRN muscle spasm 30 07/29/24 08/06/24 Rx days #60 tabs oxycodone 5 mg tablet See Rx Instructions PO Q6H PRN 07/29/24 08/06/24 Rx pain 3 days #24 tabs sertraline 50 mg tablet 50 mg PO HS 08/06/24 08/06/24 History Patient History Medical History Impaired fasting glucose Family history of factor V Leiden mutation Anxiety Chronic pain syndrome Depression Fatigue Surgical History History of cholecystectomy (~1989) Family History Father Liver cancer Brother Tobacco abuse Mother Spinal stenosis Uncle Colorectal cancer Denies family history of Ovarian cancer Prostate cancer Breast cancer Social History Smoking Status: Never smoker Second Hand Exposure: No; Do You Dip or Chew Tobacco: No; Hx Alcohol Use: Yes Alcohol type: beer Hx Substance Use: No Preferred Language: Ukrainian Communication Ability: Effective Anvil Worker Required: No Beliefs That Will Affect Care: None marital status: Current Living Situation: Spouse current occupational status: employed Other Information That Helps Us Care for You: No Feels Safe at Home: Yes Safety Concerns: Feels Safe At This Time caffeine: Yes (1 cup of coffee in am) Dental Care, Regularly: No Seatbelt Use: always Assistive Devices: Glasses Review of Systems Review of Systems: All systems reviewed & are unremarkable except as noted in HPI & below Constitutional: as per Subjective / HPI Eyes: as per Subjective / HPI Ear, Nose, Mouth, Throat: as per Subjective / HPI Respiratory: as per Subjective / HPI Cardiovascular: as per Subjective / HPI Gastrointestinal: as per Subjective / HPI Genitourinary: as per Subjective / HPI Musculoskeletal: as per Subjective / HPI Endocrine: as per Subjective / HPI Hematologic / Lymphatic: as per Subjective / HPI Physical Exam Constitutional: WD/WN, vitals as above Eyes: PERRL, conjunctivae normal, anicteric sclerae ENMT: external ear and nose normal, oropharynx normal Neck: trachea midline, no thyromegaly Respiratory: normal respiratory effort, lungs clear to auscultation Cardiovascular: RRR, no murmur, no edema Gastrointestinal (Abdomen): normal bowel sounds, soft, nontender, no hepatosplenomegaly Musculoskeletal: no cyanosis or clubbing, extremities motor strength 5/5 Results & Data Vital Signs (Past 12 Hours) Vital Signs Temp Pulse Pulse Resp BP Pulse Ox O2 Del Method 08/08/24 11:28 36.7 C 91 H 16 155/79 H 93 Nasal Cannula 08/08/24 11:00 98 Nasal Cannula, Oxymask 08/08/24 10:45 100 H 08/08/24 09:52 Oxymask 08/08/24 07:42 36.8 C 96 H 14 155/83 H 95 Oxymask 08/08/24 06:42 36.8 C 102 H 20 90 Oxymask O2 Flow Rate 08/08/24 11:28 3 08/08/24 11:00 9 08/08/24 10:45 08/08/24 09:52 9 08/08/24 07:42 9 08/08/24 06:42 8
--- NOTE | 2024-08-08 13:51 | XCELERA ---
[id number] \\[email or web address]\[id number]
[2024-08-08] MEDS: ACETAMINOPHEN 500 MG TAB PO PRN (18:21)
[2024-08-08] MEDS: amLODIPine BESYLATE 5 MG TAB PO SCH (20:28)
[2024-08-08] MEDS: ENOXAPARIN INJ 40 MG/0.4 ML SYR SQ SCH (20:30)
[2024-08-08] MEDS: MELATONIN 3 MG TAB PO PRN (20:41)
[2024-08-09] MEDS: MoRPHine SULFATE 4 MG/ML 1 ML CARP\\VIAL IV PRN (03:22)
[2024-08-09 07:35] LABS: Albumin Level 3.7 gm/dl (3.4-5.0); BUN Creatinine Ratio 49.3 (10-20); Bilirubin Direct 0.1 mg/dl (0-0.2); Bilirubin,Total 0.4 mg/dl (0.2-1.0); Calcium 8.9 mg/dl (8.6-10.3); Creatinine Clr Calc Pharmacy 93.9 ml/min; Magnesium 2.3 mg/dl (1.7-2.4); Potassium 4.1 mmol/L (3.5-5.1); Total Protein 6.3 gm/dl (6.0-8.3)
[2024-08-09] MEDS: predniSONE 20 MG TAB PO SCH (08:21)
[2024-08-09] MEDS: oxyCODONE HCL IR 5 MG TAB (IMMEDIATE RELEASE) PO PRN (08:41)
[2024-08-09] MEDS: POTASSIUM CHLORIDE CRTAB 20 MEQ TABCR PO ONE (08:41)
[2024-08-09] MEDS: FUROSEMIDE 40 MG/4 ML VIAL IV ONE (08:43)
--- NOTE | 2024-08-09 17:30 | Hospitalist Progress Note ---
Date of Service August 09, 2024 Assessment & Plan (1) Thoracic spine tumor: Plan: 58yo female with recently diagnosed thoracic and lumbar lytic lesions concerning for metastatic disease vs myeloma presenting after a fall at home. CT imaging as above with complete destruction of T8 with extension into her spinal column. Also with severe lumbar spinal stenosis at L4-5 related to L4 disc bulge and retropulsion from L5 compression fracture, L5 lesion. MRI with no cord involvement. Patient was initially slated for transfer to [facility]. Unfortunately this transfer was cancelled by the ER based on MRI results and discussion with Neurosurgery at [facility] [place]- no urgent transfer or surgical intervention recommended. Unfortunately patient has not yet been able to have biopsies obtained for definitive diagnosis as recommended by Oncology and has not yet been evaluated by Neurosurgery. She has been unable to complete her PET scan as recommended. On presentation to the ED she was hypercalcemic which improved after zolendronic acid and IV fluids. She remained hypertensive and tachycardic (sinus). CTA chest was negative for PE or pulmonary infiltrates. She was found to have urinary retention and milligan catheter was placed. She developed worsening hypoxia after lorazepam given for MRI. -Discussed with Dr. Vasques - recommended bone marrow biopsy, I discussed with radiology today IR provider not on duty will have to be done Sunday -Continue steroidschanged dexamethasone to prednisone 20 mg daily -Pain control with Morphine PRN - reduced dose and added as needed oxycodone -Flexeril 10mg po q 8 hours PRN -Heat as needed -Zofran PRN nausea -orthospine consult not available here on Sunday or this weekend, will consult on Sunday -leukocytosis is related to steroids she still may require transfer to [facility] if we cannot make reasonable progress with this (2) Acute hypoxic respiratory failure: Plan: IV lorazepam prior to MRI caused hypoventilation, also acute diastolic heart failure - obtained BNP which is elevated at 200 - good response to Lasix 40 mg IV on 08/08 and repeated today, hypoxia significantly improved and tachycardia resolved, dyspnea resolved and lung exam cleared. potassium is 4.1, magnesium is greater than 2, creatinine is unchanged today - obtained TTE reviewedhyperdynamic LVEF greater than 70% normal LV wall motion, mild concentric LVH grade 1 diastolic dysfunction, normal RV, limited but no obvious valvular disease - continue gentle diuresis as needed, may benefit from low-dose oral diuretic whenever she is taking steroids (3) Hypertension: Plan: Appears to be chronically uncontrolled but severe the morning after admission -pain control -Continue Amlodipine but increase to 10 mg HS -Added metoprolol 25 mg tid - did improve with diuresis (4) Sinus tachycardia: Plan: Has been consistently elevated 110s-120, also hypertension and worsening hypoxia. CTA negative for PE and pulmonary infiltrates in ED TSH low at 0.28, however free T4 is normal at 0.96, TSH was normal in June 2024, likely euthyroid sick rather than hyperthyroidism, recommend repeat TFTs in 4-6 weeks as outpatient. has resolved with diuresis and addition of metoprolol (5) Hypercalcemia: Plan: related to bone lesions Discussed with oncology Dr Vasques and gave Zolendronic acid 3.5mg IV on 08/06, IV saline -monitor - normal at 8.9 today Plan Depression - chronic, stable -Continue Sertraline 50mg po qHS DVT prophylaxis - enoxaparin I updated her at bedside 08/07 Admission and Anticipated Discharge Date Admission Date: August 07, 2024 Subjective she continues to have dysesthesia underneath her toes bilaterally, does not perceive any leg weakness or numbness, no perineal numbness, still has Milligan, thoracic spine feels like it is moving all around when she readjust herself in bed, still painful this morning but was sedated after morphine so started oral oxycodone which seems to have helped Physical Exam 2 Physical Exam: PHYSICAL EXAMINATION Last 24h vital signs reviewed, see documentation in flowsheet General: awake in bed HEENT: Normocephalic, atraumatic, pupils round and equal, sclerae anicteric, no conjunctival injection, moist mucus membranes Lungs: normal work of breathing lungs clear to auscultation bilaterally no wheezing Heart: tachycardic Regular rate and rhythm, no murmurs. cannot see neck veins Abdomen: Soft, nontender, nondistended Bowel sounds present. Milligan catheter in place clear yellow urine Extremities: Warm, dry, well-perfused. edema of hands and arms has resolved, leg edema improved, mild Neuro: Alert and oriented x 4 and no longer confused but not a good memory of [employer] win[employer] events, face symmetric, can move arms and legs. distal lower extremity strength is 5 out of 5, sensation to intact to light touch in lower extremities Psych: Normal affect and behavior Results & Data Results & Data Vital Signs (Past 12 Hours) Vital Signs Temp Pulse Pulse Resp BP Pulse Ox O2 Del Method 08/09/24 15:17 97.9 F 76 18 162/84 H 91 Nasal Cannula 08/09/24 13:40 71 08/09/24 11:12 97.5 F L 67 18 126/71 93 Nasal Cannula 08/09/24 07:53 Nasal Cannula 08/09/24 07:23 97.9 F 75 14 146/68 H 93 Nasal Cannula 08/09/24 06:59 73 O2 Flow Rate 08/09/24 15:17 2 08/09/24 13:40 08/09/24 11:12 08/09/24 07:53 2 08/09/24 07:23 2 08/09/24 06:59 Laboratory Results 08/08/24 06:44 08/09/24 06:39 PG Care Time/CCT Total # of Minutes Spent Total Time Spent with Patient: Total time spent is greater than 50% in coordination of care (as documented) at patient's floor/unit and/or counseling patient: Coding Level of Care Code 93657 SUB INP/OBS CARE 3/50MIN Diagnoses 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
[2024-08-09] MEDS: POLYETHYLENE (MIRALAX) 17 GM PACK PO PRN (19:47)
[2024-08-09] MEDS: DOCUSATE SODIUM 100 MG CAP PO PRN (19:47)
[2024-08-09] MEDS: MELATONIN 3 MG TAB PO PRN (21:18)
[2024-08-09] MEDS: ACETAMINOPHEN 325 MG TAB PO PRN (22:49)
[2024-08-10] MEDS: MoRPHine SULFATE 2 MG/ML CARP IV PRN (03:37)
[2024-08-10] MEDS: CYCLOBENZAPRINE HCL 10 MG TAB PO PRN (07:22)
[2024-08-10] MEDS: oxyCODONE HCL IR 5 MG TAB (IMMEDIATE RELEASE) PO PRN ×2 (07:23→20:56)
[2024-08-10] MEDS: SUMAtriptan succinate 50 MG TAB PO STA (14:42)
--- NOTE | 2024-08-10 17:30 | Hospitalist Progress Note ---
Date of Service August 10, 2024 Assessment & Plan (1) Thoracic spine tumor: Plan: 58yo female with recently diagnosed thoracic and lumbar lytic lesions concerning for metastatic disease vs myeloma presenting after a fall at home. CT imaging as above with complete destruction of T8 with extension into her spinal column. Also with severe lumbar spinal stenosis at L4-5 related to L4 disc bulge and retropulsion from L5 compression fracture, L5 lesion. MRI with no cord involvement. Patient was initially slated for transfer to [facility]. Unfortunately this transfer was cancelled by the ER based on MRI results and discussion with Neurosurgery at [facility] [place]- no urgent transfer or surgical intervention recommended. Unfortunately patient has not yet been able to have biopsies obtained for definitive diagnosis as recommended by Oncology and has not yet been evaluated by Neurosurgery. She has been unable to complete her PET scan as recommended. On presentation to the ED she was hypercalcemic which improved after zolendronic acid and IV fluids. She remained hypertensive and tachycardic (sinus). CTA chest was negative for PE or pulmonary infiltrates. She was found to have urinary retention and milligan catheter was placed. She developed worsening hypoxia after lorazepam given for MRI. Thoracic and lumbar spinal tumors with acute T8 compression fracture, almost complete replacement of T8 by tumor, previous lumbar compression fractures -Discussed with Dr. Vasques - recommended bone marrow biopsy, hoping it will be done Sunday -Consult ortho spine Dr. Noel is customer operations representative tomorrow. Start PT/OT when/if cleared for activity -Continue steroidschanged dexamethasone to prednisone 20 mg daily -Pain control with Morphine PRN, oxycodone reduced dosing interval to q4h PRN (nb was confused after morphine 4 mg IV and went into respiratory failure and acute toxic encephalopathy in ED with 1 mg lorazepam IV) -I'm not sure whether nasal calcitonin would be beneficial for pain in this scenario. Opioid treatment for cancer pain and compression fractures seems inevitable. -Flexeril 10mg po q 8 hours PRN -Heat as needed -Zofran PRN nausea -leukocytosis is related to steroids she still may require transfer to [facility] if we cannot make reasonable progress with this (2) Acute hypoxic respiratory failure: Plan: IV lorazepam prior to MRI caused hypoventilation, also acute diastolic heart failure - obtained BNP which is elevated at 200 - good response to Lasix 40 mg IV on 08/08, 08/09, hypoxia nearly resolved and tachycardia resolved, dyspnea resolved and lung exam cleared. - obtained TTE reviewedhyperdynamic LVEF greater than 70% normal LV wall motion, mild concentric LVH grade 1 diastolic dysfunction, normal RV, limited but no obvious valvular disease - continue gentle diuresis as needed, may benefit from low-dose oral diuretic whenever she is taking steroids - stopped amlodipine which has caused her some chronic edema, replaced with metoprolol minimal O2 requirement currently - may be atelectasis expect will improve with mobility (3) Hypertension: Plan: see above (4) Sinus tachycardia: Plan: Has been consistently elevated 110s-120, also hypertension and worsening hypoxia. CTA negative for PE and pulmonary infiltrates in ED TSH low at 0.28, however free T4 is normal at 0.96, TSH was normal in June 2024, likely euthyroid sick rather than hyperthyroidism, recommend repeat TFTs in 4-6 weeks as outpatient. has resolved with diuresis and addition of metoprolol (5) Hypercalcemia: Plan: related to bone lesions Discussed with oncology Dr Vasques and gave Zolendronic acid 3.5mg IV on 08/06, IV saline. Calcium normalized -monitor - normal at 8.9 today Plan Depression - chronic, stable -Continue Sertraline 50mg po qHS DVT prophylaxis - enoxaparin - hold tonight for biopsy I updated her at bedside 08/07, 08/10 Admission and Anticipated Discharge Date Admission Date: August 07, 2024 Subjective dyspnea resolved and titrated down to room air - 90% edema hands and legs resolved BP much better Thoracic back pain has intermittently been severe - oxycodone 5 mg works but wears of at 4 hours. Feels a clunk in her Tspine when she moves around in bed. No pain radiating around the chest wall. Sensation to LE and perineum remain intact Currently has migraine with L sided facial pain, has hx ocular migraine Physical Exam Physical Exam: PHYSICAL EXAMINATION Last 24h vital signs reviewed, see documentation in flowsheet General: awake in bed HEENT: Normocephalic, atraumatic, pupils round and equal, sclerae anicteric, no conjunctival injection, moist mucus membranes exam mainly unchanged 08/10 Lungs: normal work of breathing lungs clear to auscultation bilaterally no wheezing Heart: tachycardic Regular rate and rhythm, no murmurs. cannot see neck veins Abdomen: Soft, nontender, nondistended Bowel sounds present. Milligan catheter in place clear yellow urine Extremities: Warm, dry, well-perfused. edema of hands and arms has resolved, leg edema has resolved Neuro: Alert and oriented x 4, no confusion, face symmetric, can move arms and legs. distal lower extremity strength is 5 out of 5, sensation to intact to light touch in lower extremities Psych: Normal affect and behavior Results & Data Results & Data Vital Signs (Past 12 Hours) Vital Signs Temp Pulse Pulse Resp BP Pulse Ox O2 Del Method 08/10/24 15:05 97.3 F L 80 19 143/83 H 90 Room Air 08/10/24 14:19 84 08/10/24 11:42 98.2 F 81 16 142/77 H 94 Nasal Cannula 08/10/24 09:46 72 08/10/24 07:52 Nasal Cannula 08/10/24 07:29 98.2 F 71 19 104/67 92 Nasal Cannula O2 Flow Rate 08/10/24 15:05 08/10/24 14:19 08/10/24 11:42 1 08/10/24 09:46 08/10/24 07:52 1 08/10/24 07:29 1 PG Care Time/CCT Total # of Minutes Spent Total Time Spent with Patient: Total time spent is greater than 50% in coordination of care (as documented) at patient's floor/unit and/or counseling patient: Coding Level of Care Code 35982 SUB INP/OBS CARE 2/35MIN Diagnoses 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
[2024-08-10] MEDS: METOPROLOL TARTRATE 25 MG TAB PO SCH (20:54)
[2024-08-11 07:06] LABS: Hematocrit (blood only) 39.8 % (37.0-47.0); Hemoglobin 13.4 g/dl (12.0-16.0); Mean Corpuscular Hemoglobin 31.3 pg (25.0-34.0); Mean Corpuscular Hgb Conc 33.7 g/dL (32.0-36.0); Mean Platelet Volume 10.4 fL (9.4-12.4); Platelet Count 331 K/uL (130-400); RDW Coefficient of Variation 13.5 % (11.5-14.5); RDW Standard Deviation 45.8 fL (36.4-46.3); Red Blood Count 4.28 M/uL (4.20-5.40); White Blood Count 10.16 K/ul (4.8-10.8)
[2024-08-11 07:25] LABS: BUN Creatinine Ratio 40.3 (10-20); Calcium 8.7 mg/dl (8.6-10.3); Creatinine Clr Calc Pharmacy 82.5 ml/min; Potassium 4.7 mmol/L (3.5-5.1)
[2024-08-11] MEDS: oxyCODONE HCL IR 5 MG TAB (IMMEDIATE RELEASE) PO PRN (07:38)
[2024-08-11] MEDS: ACETAMINOPHEN 1000 MG/100 ML IV IV ONE (11:33)
[2024-08-11 12:19] LABS: Basophils # (auto) 0.01 K/uL (0.00-0.20); Basophils % (auto) 0.1 %; Eosinophils # (auto) 0.31 K/uL (0.00-0.50); Eosinophils % (auto) 3.1 %; Immature Granulocytes # (auto) 0.12 K/uL (0.01-0.20); Immature Granulocytes % (auto) 1.2 %; Lymphocytes # (auto) 3.15 K/uL (1.20-3.40); Lymphocytes % (auto) 31.2 %; Monocytes # (auto) 0.85 K/uL (0.11-0.59); Monocytes % (auto) 8.4 %; Neutrophils # (auto) 5.65 K/uL (1.40-6.50)
[2024-08-11] MEDS: fentaNYL citrate PF 100 MCG/2 ML VIAL ONE (12:48)
[2024-08-11 12:51] LABS: Bone Marrow Smear SLHOLD
--- NOTE | 2024-08-11 15:56 | CT Scan Report ---
CT-guided bone marrow biopsy INDICATION: Multiple myeloma PROCEDURE: Procedure and risks were explained. Informed consent was obtained. A final timeout was com pleted. The patient was placed prone on the CT exam table. The left gluteal region was prepped and dr aped in sterile fashion. 1% lidocaine was utilized for skin anesthesia. The patient received 1 g Tyle nol IV. Utilizing CT guidance, an 11-gauge bone biopsy needle was advanced into the left iliac bone. Multiple aspirates and one bone core was obtained and given to the lab. The needle was removed and Band-Aid a pplied. The patient tolerated the procedure well. Vital signs will be monitored on the floor. IMPRESSION: Bone marrow biopsy as above. Performed, dictated, and signed by Danny Richey PA-C; to be co-signed by Dr. Den Lema. Electronically signed by: Den Lema M.D. 08/11/2024 3:58 PM
[2024-08-11 15:58] VITALS: PULSE 75; RESP 18; TEMP 97.7; O2SAT 95
--- NOTE | 2024-08-11 17:13 | Discharge Summary ---
Discharge Summary Date of Service August 11, 2024 Principal Dx & Hospital Course #1 = Principal Diagnosis (1) Thoracic spine tumor: 58yo female with recently diagnosed thoracic and lumbar lytic lesions concerning for metastatic disease vs myeloma presenting after a fall at home. She came in with severe mid/upper back pain after she felt a snap. CT imaging showed complete replacement of T8 by tumor with extension into her spinal column, pathologic compression fracture. She also has known severe lumbar spinal stenosis at L4-5 related to L4 disc bulge and retropulsion from L5 compression fracture, L5 lesion. When she presented our MRI scanner was out of service. [facility]. Awaiting bed when MRI finally was repaired: T and L-spine MRI with no cord compression 08/07. Unfortunately transfer was cancelled by the ER based on MRI results and discussion with Neurosurgery at [facility] last night. I have discussed her with her medical oncologist Dr. Vasques who consulted. He suspects myeloma because her kappa : lambda is quite elevated with ratio >30 (see labs below). Dr. Vasques recommended bone marrow biopsy which was unavailable sunday through the , but was done today and is pending. We do not have local capability to biopsy her spinal lesions by IR. She also had outpatient PET scheduled for last but ended up in the ED Sunday night so this was not done. From sunday through the we had no ortho spine consult available. Today I discussed her care with our local spine surgeons Dr. Lopez and Dr. Noel. Dr. Lopez had reviewed her imaging previous to last week and referred her to [facility] because she is too complex for care locally. Unfortunately she had not yet been seen in clinic at [facility] and does not have tissue biopsy or definitive diagnosis. If it is myeloma, bone marrow biopsy could be diagnostic. Both spine surgeons recommended transfer because of her complex and high risk situation. She does not seem to have cord compression at this time but expect will progress to that very soon if diagnosis and treatment not expedited. Spine surgeon recommended bedrest at this time. She did have urinary retention in the ED and has a milligan (could have been related to morphine), currently does not have significant leg weakness and does have dysesthesia bottoms of both feet. On presentation to the ED she was hypercalcemic which resolved after zolendronic acid and IV fluids. She remained extremely hypertensive and tachycardic (sinus) from the time of ED presentation through hospital day 2 or 3. CTA chest was negative for PE or pulmonary infiltrates. She developed acute hypoxia and acute toxic metabolic encephalopathy after IV lorazepam by ED for MRI, which resolved. She appeared volume overloaded with acute pulmonary edema and peripheral edema. I diuresed her with IV lasix and hypoxia, tachycardia, hypertension resolved. TTE with normal EF. 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 Petersen and Dr. Arevalo of the medicine service -She was treated with IV dexamethasone 20 mg q8h x 24h then 10 mg x 8h last week, thereafter has been on prednisone 20 mg daily -Pain control has been with low dose Morphine PRN (2 mg because 4 mg caused oversedation), oxycodone 5mg q4h PRN. Awakens at night in pain - may benefit from long acting opioid but I did not initiate this yet -I'm not sure whether nasal calcitonin would be beneficial for pain in this scenario. Opioid treatment for cancer pain and compression fractures seems inevitable. -Flexeril 10mg po q 8 hours PRN -Heat as needed -Zofran PRN nausea -leukocytosis is related to steroids -has been on bedrest pending evaluation by spine surgeon. T8 too high for effective bracing with her body habitus. She feels clunking and grinding from her T-spine when she moves around in bed. -Possible myeloma, spinal lesions have not been biopsied, bone marrow biopsy pending - done 08/11 -local oncologist in [place] is Dr. Vasques - updated him (2) Acute hypoxic respiratory failure: IV lorazepam prior to MRI caused hypoventilation, also acute diastolic heart failure - obtained BNP which was elevated at 200 - good response to Lasix 40 mg IV on 08/08, 08/09, hypoxia nearly resolved and tachycardia resolved, dyspnea resolved and lung exam cleared. - obtained TTE reviewedhyperdynamic LVEF greater than 70% normal LV wall motion, mild concentric LVH grade 1 diastolic dysfunction, normal RV, limited but no obvious valvular disease - continue gentle diuresis as needed, may benefit from low-dose oral diuretic whenever she is taking steroids - stopped amlodipine which has caused her some chronic edema, replaced with metoprolol minimal O2 requirement currently - may be atelectasis expect will improve with mobility (3) Hypertension: see above (4) Sinus tachycardia: Early on HR was consistently elevated 110s-120, also severe uncontrolled hypertension and worsening hypoxia. CTA negative for PE and pulmonary infiltrates in ED TSH low at 0.28, however free T4 is normal at 0.96, TSH was normal in June 2024, likely euthyroid sick rather than hyperthyroidism, recommend repeat TFTs in 4-6 weeks as outpatient. tachycardia has resolved with diuresis and addition of metoprolol (5) Hypercalcemia: related to bone lesions, 13.5 on presentation. Previosuly only mildly elevated. Discussed with oncology Dr Vasques and gave Zolendronic acid 3.5mg IV on 08/06, IV saline. Calcium normalized -monitor - normal at 8.7 today Plan Depression - chronic, stable -Continue Sertraline 50mg po qHS DVT prophylaxis - enoxaparin I updated her at bedside 08/07, 08/10 Admission HPI Per Admitting Provider Tiff Lizama is a 58yo female with history of HTN presenting with back pain following a fall. Patient was seen at an Urgent Care in April 2024 with right sided sciatic pain and was prescribed a muscle relaxer and a steroid which did improve some of the symptoms. She had recurrence of her symptoms and was seen at [facility] ER on 05/28/24 with complaint of lower back pain with radiation down the right leg and into the foot. She had a non-contrast CT of the lumbar spine which revealed lytic lesions of L4 and L5 concerning for cancer, possible multiple myeloma. Patient was seen by her PCP on 06/06/24 and was prescribed additional Prednisone. She had additional CT imaging of Chest/Abdomen and Pelvis on 06/15/24 for staging which revealed osteolytic skeletal lesions notably at T8, L4 and L5 - metastasis vs multiple osteoma. L4 and L5 retropulsion with epidural extension of tumor resulting in severe canal stenosis. Indeterminate left adnexal lesion measuring up to 5.8cm. No LAD. She was seen by Hematology/Oncology on 07/08/24. Recommended IR guided biopsy of the lytic lesions. Patient's reports that they had an appointment last month to be assessed by Neurosurgery/Spine at [facility] but this appointment was cancelled by [facility]. Patient presented to [facility] ER on 08/06/24 with acute back pain. She fell at home and was pulling herself up. She felt a "Pop" in her mid thoracic area which initially did not hurt. However, she developed significant pain in the mid- thoracic region with muscle spasm and cramping which prompted her to come to the ER. She does not complain of any neurologic deficit - numbness, tingling, bowel or bladder issues. In the ER patient had a CT which showed a soft tissue mass centered within the T8 vertebral body with extension into the spinal canal and near-total obstruction of the vertebral body which has progressed. Unfortunately at the time the patient presented to the ER, the MRI machine at [facility] was under maintenance and non-functioning. The patient was discussed with Dr. Mosley at [facility] and accepted for transfer. The patient was started on IV Dexamethasone (20mg IV q 8 hours x 3 doses followed by 10mg IV q 8 hours x 3 doses). The hospitalist service was consulted for possible admission. Patient did remain in the ER pending transfer to [facility]. On 08/07/24 the MRI machine at [facility] was repaired and the patient was able to receive imaging. Full reports of all imaging below, in summary, MRI of Thoracic and Lumbar spine revealed unchanged lesions the L4 and L5 vertebral bodies as well as the sacrum most likely due to metastatin disease. Unchanged L5 compression fracture. Severe spinal stenosis at L4-L5 due to disc bulge and 6mm retropulsion of bone from the fractured and infiltrated L5 vertebral body. Unchanged lesion of T8 vertebrae, unchanged compression fracture. No cord edema or myelomalacia. Results and imaging reviewed by Dr. Weiss from [facility] who stated that there was no need for transfer to [facility] and no need for urgent surgical intervention. Therefore, the transfer to [facility] was cancelled by ER attending, Dr. Juan. Upon discussion with patient's , he is very concerned about the progressive pain that patient has been experiencing as well as the decline in mobility. He does not think it is possible to place the patient in a car and drive to [place] due to her ongoing pain and limited mobility. I reached out to the Hospitalist team at [facility] for a non-emergent transfer with hopes that patient would be transported in an ambulance and would be able to have her IR guided biopsies and Neurosurgery evaluations performed. Hospitalist team denied transfer stating that these services should be arranged outpatient. Transfer will be reviewed in AM 08/08/24 by Transfer team at [facility]. While in the ER patient was given Ativan prior to MRI after which she became agitated, confused and hypoxic. She was placed on Oxymask with improved saturations One to one sitter for patient pulling at medical support equipment Discharge Exam PHYSICAL EXAMINATION Last 24h vital signs reviewed, see documentation in flowsheet General: awake in bed HEENT: Normocephalic, atraumatic, pupils round and equal, sclerae anicteric, no conjunctival injection, moist mucus membranes exam mainly unchanged 08/11 Lungs: normal work of breathing lungs clear to auscultation bilaterally no wheezing Heart: Regular rate and rhythm, no murmurs. cannot see neck veins Abdomen: Soft, nontender, nondistended Bowel sounds present. Milligan catheter in place clear yellow urine Extremities: Warm, dry, well-perfused. edema of hands and arms has resolved, leg edema has resolved Neuro: Alert and oriented x 4, no confusion, face symmetric, can move arms and legs. distal lower extremity strength is 5 out of 5, sensation to intact to light touch in lower extremities Psych: Normal affect and behavior Discharge Plan Discharge Items Reason For Visit: BACK PAIN, MALIGNANCY Follow-up/Referrals: Talha Hernandez DO [Primary Care Provider] - Medications and DC Order Prescriptions: No Action amlodipine 5 mg tablet 5 mg PO QPM Qty: 90 3RF cyclobenzaprine 10 mg tablet 10 mg PO Q12H PRN (Reason: muscle spasm) 30 Days Qty: 60 1RF Rx Instructions: do not take with oxy oxycodone 5 mg tablet See Rx Instructions PO Q6H MDD max dose is 6 tabs / per day PRN (Reason: pain) 3 Days Qty: 24 0RF Rx Instructions: 1-2 orally every 6 hours PRN; melatonin 5 mg capsule 5 mg PO HS PRN (Reason: Sleep) acetaminophen [Tylenol Extra Strength] 500 mg tablet 1,000 mg PO Q6H PRN (Reason: Pain) ibuprofen [Advil] 200 mg Tablet 400 - 600 mg PO Q6H PRN (Reason: Pain) sertraline 50 mg tablet 50 mg PO HS Admission Data Admit Date/Time: 08/07/24 22:25 Attending Provider: Ivana Desouza Admit Provider: Jacinta King Primary Care Provider: Talha Hernandez Other Providers: Jacinta King; Jorge Vasques; Pato Noel Hospital Stay Data Consultations 08/06/24 19:53 ED Decision to Admit Stat 08/08/24 07:56 Consult Oncology Routine 08/11/24 07:55 Consult Orthopedic Spine Surgery Routine 08/11/24 15:37 Radiology Transfer Of Images Stat Diagnostic Imagining Performed 08/06/24 15:18 CT lumbar spine wo con Stat CT thoracic spine w con Stat 08/06/24 15:19 CT angio chest PE protocol Stat 08/07/24 16:07 MRI Lumbar Spine [MR lumbar spine wo con] Stat MRI Thoracic [MR thoracic spine wo con] Stat 08/11/24 08:17 IR bone marrow bx & asp Stat Lumbar Spine CT 08/06/24 15:18 EXAMINATION: CT lumbar spine W/O con CLINICAL HISTORY: Multiple myeloma, masses within the spine, pain PRIORS: 06/15/[address] TECHNIQUE: Contiguous axial images were obtained through the lumbar spine without the use of intravenous contrast. Sagittal and coronal reformations are supplied. FINDINGS: Soft tissue masses are centered within the L4 and L5 vertebral bodies. Within the L4 vertebral body, this is predominantly within the anterior vertebral body with moderate erosion/destruction of the vertebral body. The posterior cortex is intact. No high-grade compression fracture. The L5 vertebral body the soft tissue mass is present within the vertebral body and extending posteriorly. Total destruction of the posterior cortex and inferior and superior endplates is noted, progressed when compared to 06/15/2024. The soft tissue mass extends into the spinal canal. Moderate to high-grade facet hypertrophic changes present at these levels. No soft tissue mass or destruction involving the L1-L3 levels. The sacrum is unremarkable. Moderate atherosclerotic disease of the abdominal aorta in the qhbmo-nd-coli. No free fluid in the visualized abdomen or pelvis. No retroperitoneal adenopathy. IMPRESSION: 1. Soft tissue masses are present and expanding within the L4 and L5 vertebral bodies, progressed since the prior examination. At the L5 level, that soft tissue mass extends into the spinal canal with near-total destruction of the vertebral body and posterior wall. ACT 112: Positive. There are findings on this examination that require communication between the performing entity and the patient following Patient Test Result Information Act ([place] ACT 112) guidelines. Electronically signed by Mary Donnelly 08-06-2024 5:[address] 08/06/24 15:18 EXAMINATION: CT thoracic spine with contrast CLINICAL HISTORY: Multiple myeloma, masses within the spine, pain PRIORS: 06/15/[address] TECHNIQUE: Contiguous axial images were obtained through the thoracic spine without the use of intravenous contrast. Sagittal and coronal reformations are supplied. FINDINGS: A soft tissue mass is present within the T8 vertebral body with extension into the thecal sac with near-total complete destruction of the T8 vertebral body, progressed in the interval, image 50, series 901. Mild diffuse osseous demineralization noted with moderate degenerative change of the thoracic spine. Mild kyphosis is present. Multilevel anterior bridging osteophytes present. Paraspinal muscle bulk within normal limits. No pleural effusion. IMPRESSION: 1. Soft tissue mass centered within the T8 vertebral body with extension into the spinal canal and near-total destruction of the vertebral body, progressed. ACT 112: Positive. There are findings on this examination that require communication between the performing entity and the patient following Patient Test Result Information Act ([place] ACT 112) guidelines. Electronically signed by Mary Donnelly 08-06-2024 5:57 PM Chest CTA 08/06/24 15:19 EXAMINATION: CT angio chest PE protocol CLINICAL HISTORY: Bone cancer, tumors and spine, worsening spine pain, multiple myeloma, PRIORS: Chest CT 06/15/2024 TECHNIQUE: Contiguous axial images were obtained through the chest with the use of intravenous contrast. Sagittal and coronal reformations are supplied. FINDINGS: The pulmonary arteries are normal in size and well opacified no central or peripheral pulmonary embolism. No pneumonia or pneumothorax. No dominant mass in the chest. No pleural or pericardial effusion. Trachea and mainstem bronchi patent. In bone windows, advanced lucency present within the eighth thoracic vertebral body with large soft tissue mass present, image 99, series 8, extending into the spinal canal on the current examination. IMPRESSION: 1. No central or peripheral pulmonary embolism. 2. Soft tissue mass with destruction of the T8 vertebral body, extending into the spinal canal.. ACT 112: Positive. There are findings on this examination that require communication between the performing entity and the patient following Patient Test Result Information Act ([place] ACT 112) guidelines. Electronically signed by Mary Donnelly 08-06-2024 5:57 PM Lumbar Spine MRI 08/07/24 16:07 Clinical History: Fall 2 days ago Technique: Sagittal and axial T1 and T2-weighted magnetic resonance images were obtained of the lumbar spine without gadolinium contrast. Comparison is made to the CT of the lumbar spine dated 08/06/2024 Findings: There is unchanged grade 1 anterolisthesis at L4-5. There is an unchanged L5 compression fracture with loss of up to 50% of the vertebrae height centrally. There is abnormal signal involving nearly the entire L5 vertebral body with bony expansion posteriorly into the spinal canal of up to 6 mm. Again seen is a lesion within the anterior aspect of the L4 vertebral body. There is unchanged focal concavity of the inferior endplate of the L4 vertebral body that may be due to a Schmorl's node. There is a partially visualized lesion of low T1 signal intensity in the left lateral sacrum. There is no definite sign of infection. There is no sign of acute ligamentous injury. The conus medullaris appears normal, terminating at the level of L1. There is a partially visualized small right renal cyst At L1-L2, there is a minimal disc bulge without spinal stenosis or nerve root compression At L2-L3, there is a minimal disc bulge without spinal stenosis or nerve root compression At L3-L4, there is a mild disc bulge without spinal stenosis. There is slight encroachment upon both neural foramen. No clear nerve root compression is seen. At L4-L5, there is severe spinal stenosis due to a disc bulge, facet osteoarthritis, and the retropulsion of bone from the L5 vertebrae. There is mild right neural foramen narrowing At L5-S1, there is a mild disc bulge without spinal stenosis. There is bilateral neural foramen narrowing that may affect the exiting L5 nerve roots Impression: 1. Unchanged lesions within the L4 and L5 vertebral bodies as well as the sacrum, most likely due to metastatic disease 2. Unchanged L5 compression fracture 3. Severe spinal stenosis at L4-5 due to a disc bulge and facet osteoarthritis as well as 6 mm of retropulsion of bone from the fractured and infiltrated L5 vertebral body 4. Bilateral neural foramen narrowing at L5-S1 that may affect the exiting L5 nerve roots 5. Mild anterolisthesis at L4-5 Electronically signed by Bernard Victoria 08-07-2024 7:26 PM Thoracic Spine MRI 08/07/24 16:07 Clinical history: Back pain. Fall 2 days ago Technique: Sagittal and axial T1 and T2-weighted magnetic resonance images were obtained of the thoracic spine without gadolinium contrast Comparison is made to the chest CT dated 06/13/2024 Findings: The thoracic vertebrae are in normal alignment with no listhesis seen. Again seen is a lesion throughout the T8 vertebral body and extending into the left pedicle, with low T1 and partially high T2 signal intensity. There is an unchanged T8 compression fracture with loss of up to 30% of the vertebrae height centrally. There is a mild old T2 compression fracture. There is no sign of acute ligamentous injury. There is no definite sign of infection. The spinal cord is of normal signal intensity with no focal lesion seen. There are predominantly anterior disc bulges throughout the thoracic spine. No definite disc herniation is seen at any level. There is mild spinal stenosis at the level of T8 due to posterior protrusion of bone of up to 2 mm Impression: 1. Unchanged lesion involving the T8 vertebra, most likely due to metastatic disease. 2. Unchanged T8 compression fracture. It is difficult to determine whether this is subacute or old given the abnormal signal from the osseous lesion 3. Mild old T2 compression fracture 4. Mild spinal stenosis at the level of T9 with mild spinal cord deformity due to retropulsion of bone and bony expansion from the T8 fracture and osseous lesion. No cord edema or myelomalacia is seen 5. No definite nerve root compression Electronically signed by Bernard Victoria 08-07-2024 7:12 PM Chest X-Ray 08/08/24 07:19 EXAM: XR chest 1V portable CLINICAL HISTORY: Hypoxia. TECHNIQUE: An X-ray image of the chest was obtained in AP projection. COMPARISON: CT dated 06/15/2024 was reviewed. FINDINGS: Suboptimal inspiratory effort. Pulmonary Parenchyma: Lungs are clear bilaterally. No evidence of consolidation, collapse, or focal opacities. No pulmonary nodules are identified. Bilateral apical pleural thickening. Minimal blunting of left costophrenic angle could be minimal pleural effusion / pleural thickening. Heart and Mediastinum: Heart size and shape are normal. No mediastinal widening or masses. No hilar or mediastinal lymphadenopathy. Bony Thorax: Bony thorax appears intact without fractures or deformities. Soft Tissues: Soft tissues overlying the chest wall are unremarkable. IMPRESSION: 1. Minimal blunting of left costophrenic angle could be minimal pleural effusion / pleural thickening. 2. No evidence of consolidation or collapse. Electronically signed by Jackie Stephens 08-08-2024 08:11 AM Bone Marrow Biopsy w/ CT 08/11/24 08:17 CT-guided bone marrow biopsy INDICATION: Multiple myeloma PROCEDURE: Procedure and risks were explained. Informed consent was obtained. A final timeout was completed. The patient was placed prone on the CT exam table. The left gluteal region was prepped and draped in sterile fashion. 1% lidocaine was utilized for skin anesthesia. The patient received 1 g Tylenol IV. Utilizing CT guidance, an 11-gauge bone biopsy needle was advanced into the left iliac bone. Multiple aspirates and one bone core was obtained and given to the lab. The needle was removed and Band-Aid applied. The patient tolerated the procedure well. Vital signs will be monitored on the floor. IMPRESSION: Bone marrow biopsy as above. Performed, dictated, and signed by Danny Richey PA-C; to be co-signed by Dr. Den Lema. Electronically signed by: Den Lema M.D. 08/11/2024 3:58 PM 08/11/24 08/11/24 Range/Units 10:43 05:32 WBC 10.16 (4.8-10.8) K/ul RBC 4.28 (4.20-5.40) M/uL Hgb 13.4 (12.0-16.0) g/dl Hct 39.8 (37.0-47.0) % MCV 93.0 (80.0-100.0) fL MCH 31.3 (25.0-34.0) pg MCHC 33.7 (32.0-36.0) g/dL RDW Std Deviation 45.8 (36.4-46.3) fL RDW Coeff of Ely 13.5 (11.5-14.5) % Plt Count 331 (130-400) K/uL MPV 10.4 (9.4-12.4) fL Immature Gran % (Auto) 1.2 % Neut % (Auto) 56.0 % Lymph % (Auto) 31.2 % Hickman % (Auto) 8.4 % Eos % (Auto) 3.1 % Baso % (Auto) 0.1 % Neut # (Auto) 5.65 (1.40-6.50) K/uL Lymph # (Auto) 3.15 (1.20-3.40) K/uL Hickman # (Auto) 0.85 H (0.11-0.59) K/uL Eos # (Auto) 0.31 (0.00-0.50) K/uL Baso # (Auto) 0.01 (0.00-0.20) K/uL Immature Gran # (Auto) 0.12 (0.01-0.20) K/uL Sodium 138 (136-145) mmol/L Potassium 4.7 (3.5-5.1) mmol/L Chloride 104 (98-107) mmol/L Carbon Dioxide 30 (21-32) mmol/L Anion Gap 4 (3-11) BUN 31 H (6-23) mg/dl Creatinine 0.77 (0.6-1.2) mg/dl Est Cr Clr Drug Dosing 82.5 ml/min eGFR 88.26 BUN/Creatinine Ratio 40.3 H (10-20) Glucose 82 (70-99(Fasting)) mg/dl Calcium 8.7 (8.6-10.3) mg/dl Flow Cytometry Comment Pending 07/11/2024 Free Cassoday LC Quant 382.8 Free Lambda LC Quant 12.3 Free Cassoday/Lambda Ratio 31.12 Pending Results Patient Have Any Pending Studies at Discharge: Yes ( bone marrow biopsy results) Total Time Total Time Spent Total Time Spent (In Minutes): I personally spent: 120 minutes today on clinical care activities including: reviewing chart notes and vital signs reviewing labs discussion with consultants - oncology, orthopedic spine arranging hospital transfer to tertiary care discussion with managed care liaison examining and counseling the patient writing orders writing prescriptions, discharge instructions documentation Coding Level of Care Code 16823 INP/OBS DISCH >30 MIN Diagnoses 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
[2024-08-11 18:47] VITALS: BP 163/85
--- NOTE | 2024-08-15 07:06 | Coding Query ---
CODING QUERY To promote full compliance with coding requirements relating to patient care, provider participation is requested in all cases of manufacturer representative uncertainty. Please assist us with the question(s) below: Coding Question(s): There is documentation of Thoracic spine tumor in the record with documentation as of Discharge Summary of, "Thoracic spine tumor: 58yo female with recently diagnosed thoracic and lumbar lytic lesions concerning for metastatic disease vs myeloma presenting after a fall at home. She came in with severe mid/upper back pain after she felt a snap. CT imaging showed complete replacement of T8 by tumor with extension into her spinal column, pathologic compression fracture", and, "Dr. Vasques recommended bone marrow biopsy which was unavailable sunday through the weekend, but was done today and is pending. We do not have local capability to biopsy her spinal lesions by IR", and, "Possible myeloma, spinal lesions have not been biopsied, bone marrow biopsy pending - done 08/11". The Pathology Report from the bone marrow biopsy of the left iliac bone is resulted. 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 ( ) Thoracic Spine Tumor is most likely metastasis from unknown primary ( ) Thoracic Spine Tumor is most likely Other: Please Specify ( x ) Thoracic Spine Tumor is unspecified tumor Physician's Response(s): Thank you Traci Piña Principal Diagnosis: "that condition established after study, to be chiefly responsible for occasioning the admission of the patient to the hospital for care." Co-Existing Principal Diagnosis: "when two or more diagnoses equally meet the criteria for principal diagnosis as determined by the circumstances of admission, diagnostic work up, and/or therapy provided, and the Alphabetic Index, Tabular List, or another coding guideline does not provide sequencing direction, any one of the diagnoses may be sequenced first." "When the physician has documented what appears to be a current diagnosis in the body of the record, but has not included the diagnosis in the final diagnostic statement, the physician should be asked whether the diagnosis should be added." (Source [facility]oding [facility] 2 QTR90. p3-4) HAO
== END 2024-08-11 19:30 | disposition short-term general hospital (02) | DRG 564 ==
LOC: ED 14:41 → EDINP 08-07 21:40 → SUATTDRO 08-07 22:25 → EDINP 08-07 22:43 → 2S 08-08 00:37